=== PATIENT | female | born 1940 | race Caucasian/White ===

== ENCOUNTER 2022-05-24 15:06 | Outpatient (CLI) | payer MEDICARE, OTHER, SELFPAY ==
--- NOTE | 2022-05-24 15:20 | CRLHL7_ITS ---
For Patients: As a result of the Century Cures Act, medical imaging exams and procedure reports are released immediately into your electronic medical record. You may view this report before your referring provider. If you have questions, please contact your health care provider. BILATERAL SCREENING MAMMOGRAM WITH COMPUTER-AIDED DETECTION AND TOMOSYNTHESIS TECHNIQUE: CC and MLO views were obtained. These mammographic images have been obtained using full-field digital technique. These mammographic images were interpreted with the benefit of computer-aided detection. Breast Tomosynthesis was used in this interpretation. COMPARISON FILM: 05/19/21, 05/04/20, 04/18/19. FINDINGS: There are scattered areas of fibroglandular density IMPRESSION: There is no radiographic evidence for malignancy. ASSESSMENT: BI-RADS Category 1: Negative RECOMMENDATION: Routine screening mammogram in 1 year. A lay language report of this examination will be provided to the patient. Chas Reilly M.D. Diagnostic Radiologist [email or web address] NICOLÁS/faith be/Dictated by: Chas Reilly MD @ 05/25/2022 10:08:00 AM (Electronically Signed)
== END 2022-05-24 15:07 | disposition home or self-care (01) ==
LOC: MAMMO 15:13
DX: Z12.31 Encounter for screening mammogram for malignant neoplasm of breast (principal)
CPT/HCPCS: 77063; 77067

== ENCOUNTER 2023-06-26 14:10 | Emergency (ER) | payer MEDICARE, OTHER, SELFPAY ==
[2023-06-26] VITALS (9 sets, daily range): BP systolic 115–144; BP diastolic 57–93; PULSE 105–114; RESP 16–20; TEMP 37.5–37.9; O2SAT 91–97; BMI 21.8
--- NOTE | 2023-06-26 14:32 | CRLHL7_ITS ---
For Patients: As a result of the Century Cures Act, medical imaging exams and procedure reports are released immediately into your electronic medical record. You may view this report before your referring provider. If you have questions, please contact your health care provider. INDICATION: Chest congestion. TECHNIQUE: Chest 2 views. COMPARISON: None. FINDINGS: Cardiovascular and mediastinum: Heart size and vasculature are normal in caliber and appearance. Lungs and pleural spaces: There is a 4 centimeter masslike opacity within the left upper lobe raising the suspicion for pulmonary malignancy. Further evaluation with CT scan of the chest is recommended. The right lung is clear. No pleural effusion or pneumothorax is identified. Bones and soft tissues: No significant findings. IMPRESSION: 4 centimeter left upper lobe masslike opacity suspicious for pulmonary malignancy. Further evaluation with CT scan of the chest is recommended.. Dictated by Randolph Bangura MD @ 06/26/2023 3:35:29 PM (Electronically Signed)
--- NOTE | 2023-06-26 14:33 | ED.GENADULT ---
HPI - General Adult General Chief complaint: Cough Stated complaint: R side head pain, chest congestion Time Seen by Provider: 06/26/23 14:19 History of Present Illness HPI narrative: This 82-year-old female comes in reporting headache that began 3 days ago followed by a nasal congestion and cough. She states that she has felt hot and cold at times. Her son is present with her and states that he measured a temperature over 101?. She arrives here with a temperature of 100.2? F. she reports brief episodes of sharp pain in the right side of her head lasting a 2nd or 2. These are occurring every minute or so. She does not have any neurologic deficits. Related Data Previous Rx's Medication Instructions Recorded doxycycline hyclate 100 mg capsule 100 mg PO BID 10 days #20 caps 06/26/23 hydrocodone 5 mg-acetaminophen 325 1 tab PO Q4-6H PRN pain #15 tabs 06/26/23 mg tablet Allergies Allergy/AdvReac Type Severity Reaction Status Date / Time No Known Drug Allergies Allergy Verified 06/26/23 14:20 Review of Systems Status of ROS: Reports: 10 or more systems reviewed and unremarkable except as noted in History and below Narrative: Constitutional: No fevers, no weight gain or loss. Eyes: No discharge. No vision changes. HENT: No sore throat, no ear pain. Cardiovascular: No chest pain, no palpitations. Respiratory: Cough and nasal congestion. Gastrointestinal: No abdominal pain, no vomiting, no diarrhea. Genitourinary: No dysuria, no hematuria. Musculoskeletal: Normal range of motion. Skin: No rashes, no pruritis. Neurological: No dizziness, weakness, sensory change, speech change. Endo/Heme/Allergies: No bruising or bleeding. No polydipsia. Pysch: no suicidality, no anxiety, no insomnia. All other systems reviewed and are negative. PFSH PFSH Social History Smoking Status: Never smoker Do you use any of these nicotine containing products: None and E-Cigarettes Second hand tobacco smoke exposure: No How often do you have a drink containing alcohol: never AUDIT-C Alcohol total score: 0 Non-prescribed substance use: denies use service: No Exam Narrative: Exam Narrative: Constitutional: Well-developed, well-nourished, no acute distress. HEENT: Normocephalic, atraumatic. Neck: Normal range of motion. Nontender. Supple. Heart: Regular. No murmurs. Tachycardia. Intact distal pulses. Lungs: Clear to auscultation. No chest discomfort. No wheezes, rhonchi, or rales. Abdomen: Normal bowel sounds. Nontender. No rebound tenderness. Genitalia: Deferred. Back: No midline tenderness. Normal range of motion. Extremities: Normal range of motion. No injury. Skin: Intact. No rash. Warm. No erythema or pallor. Neurologic: No altered sensation. No weakness. Alert and oriented. Psychiatric: No suicidality. No anxiety or depression. No insomnia. Nursing notes and vitals signs are reviewed. Const: Vital Signs, click to edit/add: Vital Signs - 24 hr 06/26/23 14:15 06/26/23 14:37 06/26/23 14:38 Temperature 100.2 F H Pulse Rate 114 H 109 H Pulse Rate [Pulse Oximeter] 112 H Respiratory Rate 16 16 Blood Pressure 115/93 H Blood Pressure [Ri ght Upper Arm] 144/73 H Pulse Oximetry 97 91 95 Oxygen Delivery Me thod Room Air 06/26/23 14:45 06/26/23 15:00 06/26/23 15:02 Temperature Pulse Rate 107 H 105 H 106 H Pulse Rate [Pulse Oximeter] Respiratory Rate 20 Blood Pressure 116/64 Blood Pressure [Ri ght Upper Arm] Pulse Oximetry 94 94 94 Oxygen Delivery Me thod 06/26/23 15:19 06/26/23 17:17 Temperature 100.2 F H 99.6 F Pulse Rate Pulse Rate [Pulse Oximeter] Respiratory Rate Blood Pressure Blood Pressure [Ri ght Upper Arm] Pulse Oximetry Oxygen Delivery Me thod Course Vital Signs Vital signs: Initial Vital Signs Temperature 100.2 F H 06/26/23 14:15 Temperature Source Oral 06/26/23 14:15 Pulse Rate 112 H 06/26/23 14:15 Pulse Rhythm Regular 06/26/23 14:15 Pulse Strength 3+ Normal 06/26/23 14:15 Respiratory Rate 16 06/26/23 14:15 Blood Pressure 144/73 H 06/26/23 14:15 Blood Pressure Mean 96 06/26/23 14:15 Blood Pressure Position Sitting 06/26/23 14:15 Pulse Oximetry 97 06/26/23 14:15 Oxygen Delivery Method Room Air 06/26/23 14:15 Vital Signs Temperature 100.2 F H 06/26/23 14:15 Pulse Rate 112 H 06/26/23 14:15 Respiratory Rate 16 06/26/23 14:15 Blood Pressure 144/73 H 06/26/23 14:15 Pulse Oximetry 97 06/26/23 14:15 Oxygen Delivery Method Room Air 06/26/23 14:15 Temperature 99.6 F 06/26/23 17:17 Pulse Rate 106 H 06/26/23 15:02 Respiratory Rate 20 06/26/23 15:02 Blood Pressure 116/64 06/26/23 15:02 Pulse Oximetry 94 06/26/23 15:02 Oxygen Delivery Method Room Air 06/26/23 14:15 Medications Administered Medications: Discontinued Medications Generic Name Dose Route Start Last Admin Trade Name Sammy PRN Reason Stop Dose Admin Acetaminophen 1,000 mg 06/26/23 15:01 06/26/23 15:19 Acetaminophen 500 Mg Tablet PO 06/26/23 15:02 1,000 mg ONCE ONE Administration Hydromorphone HCl 0.2 mg 06/26/23 14:31 06/26/23 14:57 Hydromorphone 0.5 Mg/0.5 Ml Inj IVP 06/26/23 14:32 0.2 mg ONCE ONE Administration Ondansetron HCl 4 mg 06/26/23 14:31 06/26/23 14:57 Ondansetron 2 Mg/Ml Inj IVP 06/26/23 14:32 4 mg ONCE ONE Administration Medical Decision Making MDM Narrative Medical decision making narrative: This patient comes in with upper respiratory symptoms as described above. She does have some tachycardia and did arrive with a borderline fever. Nasal pharyngeal swab returns positive for RSV. Chest x-ray was also obtained and shows a masslike structure in the left upper lobe that would benefit from CT imaging as it is suspicious for a malignancy. The patient also is having short severe pain episodes in her right side of her head. So a CT scan of her head and chest is obtained. The scan of the head returns negative. The chest CT does show this lesion in the left upper lobe. Radiologist recommends follow-up imaging after treatment. The patient is positive for RSV but given this finding on imaging I did elect to treat with doxycycline. I advised her to follow-up with her primary physician in a few weeks or so for repeat imaging. She received prescription also for some tablets of [place]. Lab Data Labs: Lab Results 06/26/23 06/26/23 Range/Units 14:19 14:45 WBC 12.56 H (4.50-11.00) K/uL RBC 4.25 (4.00-5.20) m/uL Hgb 12.6 (12.0-16.0) gm/dL Hct 38.3 (33.0-51.0) % MCV 90 (80-100) fL MCH 30 (26-34) pg MCHC 33 (32-36) gm/dL RDW Coeff of [place] 13.7 (11.5-15.5) % Plt Count 231 (140-440) K/uL Neut % (Auto) 90.5 H (42.0-72.0) % Lymph % (Auto) 2.8 L (20-44) % [place] % (Auto) 6.2 (0.0-11.0) % Eos % (Auto) 0.0 (0.0-7.0) % Baso % (Auto) 0.2 (0.0-3.0) % Neut # (Auto) 11.40 H (1.7-7.0) K/uL Lymph # (Auto) 0.40 L (0.90-2.90) K/uL [place] # (Auto) 0.80 (0.00-0.90) K/UL Eos # (Auto) 0.00 (0.00-0.50) K/uL Baso # (Auto) 0.00 (0.00-0.30) K/uL Abs Immat Gran (auto) 0.00 (0.00-0.30) K/uL Imm/Tot Granulo (auto) 0.3 % Sodium 133 L (135-149) mmol/L Potassium 3.7 (3.6-5.1) mmol/L Chloride 100 (96-114) mmol/L Carbon Dioxide 23 (20-32) mmol/L Anion Gap 10 (7-15) mEq/L BUN 14 (7-30) mg/dL Creatinine 0.7 (0.5-1.5) mg/dL Estimated Creat Clear 41.30 Estimated GFR 87 ml/min Glucose 184 H (60-115) mg/dL Lactate 1.5 (0.5-1.9) mmol/L Calcium 8.8 (8.4-10.6) mg/dL SARS-CoV-2 (PCR) Negative SARS-CoV-2 (Negative) Influenza Type A (PCR) Negative PCR FLU A (Negative) Influenza Type B (PCR) Negative PCR FLU B (Negative) RSV (PCR) POSITIVE PCR RSV A (Negative) Discharge Plan Discharge Clinical Impression: RSV infection, Pneumonia Patient Disposition: Home w/ Parent or Adult Condition: Stable Additional Instructions: take medication as prescribed. Follow up with primary physician after treatment for reimaging of the chest. Return if worsening. Prescriptions: New doxycycline hyclate 100 mg capsule 100 mg PO BID 10 Days Qty: 20 0RF hydrocodone-acetaminophen 5-325 mg tablet 1 tab PO Q4-6H PRN (Reason: pain) Qty: 15 0RF Follow Up/Referrals: Provider,Not a Local [Referring] - Stand Alone Forms: [employer] Info Instructions
[2023-06-26] MEDS: HYDROmorphone 0.5 mg/0.5 ml inj 0.2 MG IVP (14:57)
[2023-06-26] MEDS: ONDANSETRON 2 MG/ML inj 4 MG IVP (14:57)
[2023-06-26 15:05] LABS: Lactate* 1.5 mmol/L (0.5-1.9)
[2023-06-26 15:14] LABS: Basophils Percent Auto 0.2 % (0.0-3.0); Hematocrit 38.3 % (33.0-51.0); Hemoglobin* 12.6 gm/dL (12.0-16.0); Immature Granulocytes Pct Auto 0.3 %; Lymphocytes Percent Auto 2.8 % (20-44); Mean Corpuscular HGB Conc 33 gm/dL (32-36); Mean Corpuscular Hemoglobin 30 pg (26-34); Mean Corpuscular Volume 90 fL (80-100); Monocytes Percent Auto 6.2 % (0.0-11.0); Neutrophils Percent Auto 90.5 % (42.0-72.0); Platelet Count* 231 K/uL (140-440); RDW Coefficient of Variation % 13.7 % (11.5-15.5); Red Blood Count 4.25 m/uL (4.00-5.20); White Blood Count* 12.56 K/uL (4.50-11.00)
[2023-06-26 15:17] LABS: Slide Review Reflex No
[2023-06-26] MEDS: ACETAMINOPHEN 500 MG TABLET 1000 MG PO (15:19)
[2023-06-26 15:29] LABS: Chloride* 100 mmol/L (96-114); Potassium* 3.7 mmol/L (3.6-5.1); Sodium* 133 mmol/L (135-149)
[2023-06-26 15:32] LABS: Anion Gap 10 mEq/L (7-15); Blood Urea Nitrogen* 14 mg/dL (7-30); Carbon Dioxide* 23 mmol/L (20-32); Creatinine* 0.7 mg/dL (0.5-1.5); Estimated Glomerular Filt Rate 87 ml/min; Glucose* 184 mg/dL (60-115)
[2023-06-26 15:33] LABS: Calcium* 8.8 mg/dL (8.4-10.6)
--- NOTE | 2023-06-26 15:33 | PC.NURSE ---
Pt returned from radiology, denies headache pain.
[2023-06-26 16:06] LABS: PCR FLU A Negative PCR FLU A (Negative); PCR FLU B Negative PCR FLU B (Negative); PCR RSV POSITIVE PCR RSV (Negative); SARS PCR* Negative SARS-CoV-2 (Negative)
--- NOTE | 2023-06-26 16:13 | CRLHL7_ITS ---
For Patients: As a result of the Century Cures Act, medical imaging exams and procedure reports are released immediately into your electronic medical record. You may view this report before your referring provider. If you have questions, please contact your health care provider. INDICATION: Stabbing headache. TECHNIQUE: Noncontrast CT of the head with multiplanar reformat in bone and soft tissue algorithms. COMPARISON: None available. FINDINGS: No acute intracranial hemorrhage. Scattered foci of supratentorial white matter hypoattenuation. The barrios-white matter interface is preserved. The ventricles are normal in size. The skull base and calvarium are within normal limits. Orbits are unremarkable. Paranasal sinuses and mastoid air cells are predominantly clear. IMPRESSION: 1. No acute intracranial hemorrhage or CT evidence of cortical infarct. 2. Scattered foci of supratentorial white matter hypoattenuation, nonspecific, but typical of chronic small vessel ischemic changes. Please note that all CT scans at this facility use dose modulation, iterative reconstruction, and/or weight-based dosing when appropriate to reduce radiation dose to as low as reasonably achievable. Dictated by Fermin Rubio MD @ 06/26/2023 4:57:51 PM (Electronically Signed)
--- NOTE | 2023-06-26 16:13 | CRLHL7_ITS ---
For Patients: As a result of the Cures Act, medical imaging exams and procedure reports are released immediately into your electronic medical record. You may view this report before your referring provider. If you have questions, please contact your health care provider. Indication: Follow-up chest x-ray mass from today Technique: Volumetric multidetector CT images of the chest were obtained without the administration of IV contrast. Comparison: Two-view chest June 26, 2023 Findings: The thoracic inlet and thyroid gland are unremarkable. The thoracic aorta is nonaneurysmal. There are enlarged mediastinal and left hilar lymph nodes. There is moderate central bronchial thickening. There is redemonstration of masslike consolidation within the left upper lobe with scattered air bronchograms. There is no pleural effusion or pneumothorax. There is minimal dependent basilar atelectasis. There is no evidence of pulmonary mass or suspicious pulmonary nodule. The partially visualized upper abdominal viscera are within normal limits. The thoracic vertebral body heights are grossly maintained with endplate subchondral cystic changes and Schmorl`s defects. There is no significant spondylolisthesis or displaced fracture. Impression: Demonstration of masslike airspace consolidation within the left upper lobe with air bronchograms corresponding to the area of concern on chest x-ray. Finding could represent a bland consolidation and further evaluation with repeat films after treatment is recommended to document clearance. No other findings suspicious for malignancy. Please note that all CT scans at this facility use dose modulation, iterative reconstruction, and/or weight-based dosing when appropriate to reduce radiation dose to as low as reasonably achievable. Dictated by Sebastián Vasquez MD @ 06/26/2023 5:00:17 PM (Electronically Signed)
== END 2023-06-26 17:40 | disposition home or self-care (01) ==
PROVIDERS: Emergency Provider Emergency Medicine Emergency Medical Services; PCP Family Medicine
DX: J18.9 Pneumonia, unspecified organism (principal); B97.4 Respiratory syncytial virus as the cause of diseases classified elsewhere
CPT/HCPCS: 36415; 70450; 71046; 71250; 80048; 83605; 85025; 87040; 87631; 96374; 96375; 99284; A9270; J1170; J2405

== ENCOUNTER 2023-06-27 21:55 | Inpatient (IN) | payer MEDICARE, OTHER, SELFPAY ==
[2023-06-27 22:27] VITALS: O2SAT 93
[2023-06-27 22:28] VITALS: BP 105/61; PULSE 100; RESP 22; TEMP 37.4; O2SAT 81; BMI 21.8
--- NOTE | 2023-06-27 22:42 | CRLHL7_ITS ---
For Patients: As a result of the Century Cures Act, medical imaging exams and procedure reports are released immediately into your electronic medical record. You may view this report before your referring provider. If you have questions, please contact your health care provider. INDICATION: Hypoxia, cough. TECHNIQUE: Chest 1 view. COMPARISON: Chest radiograph 06/26/2023. CT chest 06/26/2023. FINDINGS: There is a large dense consolidation in the left upper lung with air bronchograms. This has increased in size since prior exam. Hazy airspace opacities in the left lower lung with a new small density in the left lung base. New faint opacity in the lateral right lower lung. Findings likely represent worsening pneumonia. No pneumothorax or significant pleural effusion. Heart size and pulmonary vasculature are within normal limits. The bones are unremarkable. IMPRESSION: Increased size of the large left upper lung consolidation with new bilateral lower lung opacities. Findings likely represent worsening pneumonia. Follow-up is recommended after treatment to ensure resolution. Dictated by Kymberly Carrillo MD @ 06/28/2023 12:27:11 AM (Electronically Signed)
--- NOTE | 2023-06-27 22:44 | ED_ITS ---
HPI - General Adult General Chief complaint: Shortness of Breath/Dyspnea Stated complaint: RSV+ was seen yesterday Time Seen by Provider: 06/27/23 22:36 History of Present Illness HPI narrative: This 82-year-old female was seen yesterday in the emergency department and diagnosed with RSV. Chest x-ray had a finding that indicated need for CT imaging. There was suspicion of a masslike structure that might be malignancy. CT report yesterday stated repeat imaging should be done after treatment. The patient had normal vital signs and went home with a prescription of doxycycline. She returns today with significant shortness of breath. She arrives with oximetry at 81% on room air. She was placed on nasal cannula oxygen and now is at 93-94% oximetry. She states that she had a fever. When I asked her what the temperature was she stated that it was 200. Related Data Previous Rx's Medication Instructions Recorded doxycycline hyclate 100 mg capsule 100 mg PO BID 10 days #20 caps 06/26/23 hydrocodone 5 mg-acetaminophen 325 1 tab PO Q4-6H PRN pain #15 tabs 06/26/23 mg tablet Allergies Allergy/AdvReac Type Severity Reaction Status Date / Time No Known Drug Allergies Allergy Verified 06/26/23 14:20 Review of Systems Status of ROS: Reports: 10 or more systems reviewed and unremarkable except as noted in History and below Narrative: The patient is a poor historian and review of systems is difficult to obtain. [facility] Social History Smoking Status: Never smoker Do you use any of these nicotine containing products: None and E-Cigarettes Second hand tobacco smoke exposure: No How often do you have a drink containing alcohol: never AUDIT-C Alcohol total score: 0 Non-prescribed substance use: denies use service: No Exam Narrative: Exam Narrative: Constitutional: Well-developed, well-nourished, no acute distress. HEENT: Normocephalic, atraumatic. Neck: Normal range of motion. Nontender. Supple. Heart: Regular. No murmurs. Normal rate. Intact distal pulses. Lungs: No use of accessory muscles for breathing. No chest discomfort. Increased lung sounds on the left side. Abdomen: Normal bowel sounds. Nontender. No rebound tenderness. Genitalia: Deferred. Back: No midline tenderness. Normal range of motion. Extremities: Normal range of motion. No injury. Skin: Intact. No rash. Warm. No erythema or pallor. Neurologic: No altered sensation. No weakness. Alert and oriented. Psychiatric: No suicidality. No anxiety or depression. No insomnia. Nursing notes and vitals signs are reviewed. Const: Vital Signs, click to edit/add: Vital Signs - 24 hr 06/27/23 22:27 06/27/23 22:28 06/27/23 23:39 Temperature 99.4 F Pulse Rate [Pulse Oximeter] 100 Respiratory Rate 22 [facility] 105/61 Pulse Oximetry 93 81 L 92 Oxygen Delivery Me thod Nasal Cannula Room Air Room Air Oxygen Flow Rate 2 4 Course Vital Signs Vital signs: Initial Vital Signs Pulse Oximetry 93 06/27/23 22:27 Oxygen Delivery Method Nasal Cannula 06/27/23 22:27 Oxygen Flow Rate 2 06/27/23 22:27 Vital Signs Pulse Oximetry 93 06/27/23 22:27 Oxygen Delivery Method Nasal Cannula 06/27/23 22:27 Oxygen Flow Rate 2 06/27/23 22:27 Temperature 99.4 F 06/27/23 22:28 Pulse Rate 100 06/27/23 22:28 Respiratory Rate 22 06/27/23 22:28 Blood Pressure 105/61 06/27/23 22:28 Pulse Oximetry 92 06/27/23 23:39 Oxygen Delivery Method Room Air 06/27/23 23:39 Oxygen Flow Rate 4 06/27/23 23:39 Medical Decision Making [facility] Narrative Medical decision making narrative: This patient comes in with hypoxia and oximetry at 81% on room air. She is placed on nasal cannula oxygen and now with 4 L she is maintaining oximetry at around 93-94%. I did a repeat x-ray and compared with yesterday there is s ignificant increase of the infiltrate in the left lung typical of pneumonia. Testing yesterday was positive for RSV. An IV was established and after blood cultures are acquired the patient did receive doses of Rocephin and Zithromax intravenously. Lab results returned with an elevated white count to 18,000. Her lactate level is in normal range. I spoke with the [facility] hospitalist, Dr. Greer, who agrees to her admission into the hospital. Lab Data Labs: Lab Results 06/27/23 Range/Units 23:11 WBC 18.62 H (4.50-11.00) K/uL RBC 4.20 (4.00-5.20) m/uL Hgb 12.5 (12.0-16.0) gm/dL Hct 37.7 (33.0-51.0) % MCV 90 (80-100) fL MCH 30 (26-34) pg MCHC 33 (32-36) gm/dL RDW Coeff of [place] 14.3 (11.5-15.5) % Plt Count 248 (140-440) K/uL Neut % (Auto) 95.2 H (42.0-72.0) % Lymph % (Auto) 1.3 L (20-44) % [place] % (Auto) 2.5 (0.0-11.0) % Eos % (Auto) 0.0 (0.0-7.0) % Baso % (Auto) 0.1 (0.0-3.0) % Neut # (Auto) 17.70 H (1.7-7.0) K/uL Lymph # (Auto) 0.20 L (0.90-2.90) K/uL [place] # (Auto) 0.50 (0.00-0.90) K/UL Eos # (Auto) 0.00 (0.00-0.50) K/uL Baso # (Auto) 0.00 (0.00-0.30) K/uL Abs Immat Gran (auto) 0.20 (0.00-0.30) K/uL Imm/Tot Granulo (auto) 0.9 % Sodium 131 L (135-149) mmol/L Potassium 4.4 (3.6-5.1) mmol/L Chloride 98 (96-114) mmol/L Carbon Dioxide 22 (20-32) mmol/L Anion Gap 11 (7-15) mEq/L BUN 32 H (7-30) mg/dL Creatinine 1.3 (0.5-1.5) mg/dL Estimated Creat Clear 31.77 Estimated GFR 41 ml/min Glucose 114 (60-115) mg/dL Lactate 1.3 (0.5-1.9) mmol/L Calcium 8.9 (8.4-10.6) mg/dL Troponin I < 0.01 L (0.01-0.04) ng/mL ECG Data Attestation: I personally reviewed and interpreted this ECG as follows: Interpretation: Normal sinus rhythm. Rate is 93 beats per minute. There are no ST or T-wave abnormalities. Discharge Plan Discharge Clinical Impression: RSV infection, Pneumonia Patient Disposition: Admitted As Inpatient Condition: Unchanged Prescriptions: No Action doxycycline hyclate 100 mg capsule 100 mg PO BID 10 Days Qty: 20 0RF hydrocodone-acetaminophen 5-325 mg tablet 1 tab PO Q4-6H PRN (Reason: pain) Qty: 15 0RF Follow Up/Referrals: Marycruz Mills MD [Primary Care Provider] -
[2023-06-27 23:15] LABS: Lactate* 1.3 mmol/L (0.5-1.9)
[2023-06-27 23:19] LABS: Basophils Percent Auto 0.1 % (0.0-3.0); Hematocrit 37.7 % (33.0-51.0); Hemoglobin* 12.5 gm/dL (12.0-16.0); Immature Granulocytes Pct Auto 0.9 %; Lymphocytes Percent Auto 1.3 % (20-44); Mean Corpuscular HGB Conc 33 gm/dL (32-36); Mean Corpuscular Hemoglobin 30 pg (26-34); Mean Corpuscular Volume 90 fL (80-100); Monocytes Percent Auto 2.5 % (0.0-11.0); Neutrophils Percent Auto 95.2 % (42.0-72.0); Platelet Count* 248 K/uL (140-440); RDW Coefficient of Variation % 14.3 % (11.5-15.5); White Blood Count* 18.62 K/uL (4.50-11.00)
[2023-06-27 23:20] LABS: Slide Review Reflex No
[2023-06-27 23:36] LABS: Chloride* 98 mmol/L (96-114); Potassium* 4.4 mmol/L (3.6-5.1); Sodium* 131 mmol/L (135-149)
[2023-06-27 23:38] LABS: Creatinine* 1.3 mg/dL (0.5-1.5); Est. Creatinine Clearance* 31.77; Estimated Glomerular Filt Rate 41 ml/min
[2023-06-27 23:39] VITALS: O2SAT 92
[2023-06-27 23:39] LABS: Anion Gap 11 mEq/L (7-15); Blood Urea Nitrogen* 32 mg/dL (7-30); Calcium* 8.9 mg/dL (8.4-10.6); Carbon Dioxide* 22 mmol/L (20-32); Glucose* 114 mg/dL (60-115)
[2023-06-27 23:51] LABS: Troponin I* < 0.01 ng/mL (0.01-0.04)
[2023-06-27 23:59] VITALS: PULSE 94; O2SAT 90
[2023-06-28] VITALS (10 sets, daily range): BP systolic 117–134; BP diastolic 54–79; PULSE 94–102; RESP 20–22; TEMP 36.8–37.6; O2SAT 90–98; BMI 22.2
--- NOTE | 2023-06-28 00:29 | W.PM.TELEH&P ---
Telehealth- H&P: HPI History of Present Illness Date Seen: 06/28/23 Chief complaint: RSV+ was seen yesterday Narrative: Yoko Pierson is seen as an Interactive Telehealth visit. Yoko Pierson is a 82 year old female who as baseline is remarkably healthy (no prescription medications chronically) who was seen yesterday in the emergency department for headache, cough, congestion as well as shortness of breath. She was diagnosed with RSV infection with left upper lobe pneumonia, and was sent home with doxycycline. She returned today for worsening symptoms today. She states that her symptoms started last Sunday with a headache. She endorses congestion, dry coughing, fevers, and loss of appetite and nausea. She was unable to keep down any of the prescribed antibiotic. She denies any sick contacts in her family, but does say that there were people sick at her work. Repeat x-ray showed enlarging left upper lobe pneumonia. WBC is worsening, climbing from 12.6-11.6. She also has worsening hyponatremia. She does not require supplemental oxygen when she was seen yesterday, but now is requiring as much as 4 L to maintain oxygen saturation above 90%. Lactate is within normal limits at 1.3. Blood cultures were drawn, patient was placed on empiric Zosyn in the emergency department appropriately. She is now admitted for further management for worsening pneumonia. Review of Systems Status of ROS: Reports: 10 or more systems reviewed and unremarkable except as noted in History and below [facility] Social History Smoking Status: Never smoker Do you use any of these nicotine containing products: None and E-Cigarettes Second hand tobacco smoke exposure: No How often do you have a drink containing alcohol: never AUDIT-C Alcohol total score: 0 Non-prescribed substance use: denies use service: No Meds Home Medications and Allergies Allergies Allergy/AdvReac Type Severity Reaction Status Date / Time No Known Drug Allergies Allergy Verified 06/26/23 14:20 Exam Narrative Exam Narrative: Physical Exam GENERAL: ?vital signs reviewed, well developed and nourished, in no distress HEENT: pupils are equal round and reactive to light, extraocular movements are grossly within normal limits and oral mucosa is moist. NECK: Supple without lymphadenopathy or thyromegaly according to nursing staff examination observation HEART: Regular rate and rhythm without any rubs, murmurs, or gallops. LUNGS: Clear to auscultation bilaterally with good air movement throughout ABDOMEN: Observation from nurse assisted exam, abdomen appears soft, nontender, and nondistended with Positive bowel sounds noted. EXTREMITIES: Trace edema LEs bilaterally SKIN:? Observed warm and dry with color normal Const Vital Signs, click to edit/add: Vital Signs - 24 hr 06/27/23 22:27 06/27/23 22:28 06/27/23 23:39 Temperature 99.4 F Pulse Rate Pulse Rate [Pulse Oximeter] 100 Respiratory Rate 22 Blood Pressure [Right Upper Arm] 105/61 Pulse Oximetry 93 81 L 92 Oxygen Delivery Method Nasal Cannula Room Air Room Air Oxygen Flow Rate 2 4 06/27/23 23:59 06/28/23 00:00 Temperature Pulse Rate 94 94 Pulse Rate [Pulse Oximeter] Respiratory Rate Blood Pressure [Right Upper Arm] Pulse Oximetry 90 90 Oxygen Delivery Method Oxygen Flow Rate Hospitalist - H&P: Result Labs Labs: Short CBC 06/27/23 Range/Units 23:11 WBC 18.62 H (4.50-11.00) K/uL Hgb 12.5 (12.0-16.0) gm/dL Hct 37.7 (33.0-51.0) % Plt Count 248 (140-440) K/uL BMP 06/27/23 23:11 Sodium 131 L Potassium 4.4 Chloride 98 Carbon Dioxide 22 BUN 32 H Creatinine 1.3 Glucose 114 Calcium 8.9 Cardiac Enzymes 06/27/23 Range/Units 23:11 Troponin I < 0.01 L (0.01-0.04) ng/mL Assessment and Plan Assessment and plan (1) Pneumonia: Status: Acute Assessment and Plan: Possible viral pneumonia versus secondary bacterial component. CTA and CXR confirm enlarging KENN consolidation, less likely malignancy due to changes within 24 hours (2) RSV infection: Status: Acute Assessment and Plan: Supportive cares (3) Hyponatremia: Status: Acute Assessment and Plan: Likely hypovolemic as a result of acute illness. Will give IVFs (4) Acute hypoxic respiratory failure: Status: Acute Assessment and Plan: Supplemental O2 as needed, wean as able (5) Sepsis: Status: Acute Assessment and Plan: Lactate wnl IVFs (6) Community acquired pneumonia: Status: Acute Assessment and Plan: Empiric zosyn and azithromycin Follow blood cultures Telehealth: Statement Statement Telehealth Visit: Today's History and Physical is provided via interactive telehealth by Ahsan Greer MD.? Patient is located at [facility].? Provider is located at [facility].? Nursing staff assisted with the patient's exam. The visit being done today meets criteria for a telehealth visit and the patient or patient?s parent/guardian is aware the visit is a telehealth visit.
--- NOTE | 2023-06-28 00:47 | PC.NURSE ---
nurse to nurse report given to zeeshan GARCIA. patient going to [phone].
[2023-06-28] MEDS: SODIUM CHLORIDE 0.9 % (FLUSH) 10 ML SYRINGE 5 ML IVF ×2 (01:51→21:35)
[2023-06-28] MEDS: 0.9 % SODIUM CHLORIDE 1000 ml 1,000 ML 75 ML IV ×2 (01:52→20:15)
[2023-06-28] MEDS: PIPERACILLIN/TAZOBACTAM 3.375 GM in 0.9 % SODIUM CHLORIDE Mini-bag 100 ML IVPB ×4 (01:52→20:14)
[2023-06-28] MEDS: ACETAMINOPHEN 325 MG TABLET PO ×3 (01:55→15:45)
[2023-06-28] MEDS: AZITHROMYCIN 500 MG in 0.9 % SODIUM CHLORIDE 250 ml 250 ML 255 MG IVPB (02:57)
[2023-06-28] MEDS: ENOXAPARIN 30 MG/0.3ML INJ 40 MG SUBCUT (03:02)
[2023-06-28 06:32] LABS: Basophils Percent Auto 0.1 % (0.0-3.0); Hematocrit 34.8 % (33.0-51.0); Hemoglobin* 11.4 gm/dL (12.0-16.0); Lymphocytes Percent Auto 1.9 % (20-44); Mean Corpuscular HGB Conc 33 gm/dL (32-36); Mean Corpuscular Hemoglobin 29 pg (26-34); Mean Corpuscular Volume 90 fL (80-100); Monocytes Percent Auto 2.2 % (0.0-11.0); Neutrophils Percent Auto 94.8 % (42.0-72.0); Platelet Count* 240 K/uL (140-440); RDW Coefficient of Variation % 14.4 % (11.5-15.5); Red Blood Count 3.88 m/uL (4.00-5.20); White Blood Count* 18.65 K/uL (4.50-11.00)
[2023-06-28 06:40] LABS: Chloride* 100 mmol/L (96-114); Potassium* 4.2 mmol/L (3.6-5.1); Sodium* 133 mmol/L (135-149)
[2023-06-28 06:43] LABS: Anion Gap 7 mEq/L (7-15); Blood Urea Nitrogen* 33 mg/dL (7-30); Carbon Dioxide* 26 mmol/L (20-32); Creatinine* 1.3 mg/dL (0.5-1.5); Est. Creatinine Clearance* 31.77; Estimated Glomerular Filt Rate 41 ml/min; Slide Review Reflex Yes
[2023-06-28 06:44] LABS: Calcium* 8.4 mg/dL (8.4-10.6); Glucose* 107 mg/dL (60-115)
[2023-06-28 07:41] LABS: Slide Review Acceptable Review (Acceptable)
--- NOTE | 2023-06-28 07:47 | PC.NURSE ---
Pt alert and oriented x3. Afebrile. Pt reports 3/10 pain in throat from coughing, pain managed with PRN medications. Pt reports occasional headaches described as short shooting sharp pain that lasts for a few seconds to minutes then goes away. Pt is up SBA with IV pole. Pt reports nausea with drinking water prior to arriving to unit but has since been able to take sips without nausea. Pt slept intermittently throughout night.
[2023-06-28] MEDS: METHYLPREDNISOLONE SOD SUCC 62.5 MG/ML (125) 125 MG IVP ×3 (09:29→21:36)
[2023-06-28] MEDS: IPRAT-ALBUT 0.5-2.5 MG/3 ML NEB 1 NEB IH ×2 (09:45→15:46)
--- NOTE | 2023-06-28 13:57 | PC.NURSE ---
Shift Summary: Patient pleasant and cooperative. Up with SBA. Vital stable and WNL. O2 weaned down to 2.5L/NC, maintaining o2 sat 90-94%. headache and sore throat intermittently throughout shift, managed with PRN acetaminophen and dimming the lights in her room. Wheezing heard this morning, PRN neb effective.
--- NOTE | 2023-06-28 15:15 | PM.IMPN1 ---
Progress Note: A&P Assessment and plan (1) Acute hypoxic respiratory failure: Problem details: -positive RSV, left upper lobe pneumonia -pulmonary hygiene. Budesonide nebs. P.r.n. DuoNebs. RT to evaluate with ISP and aerobika. -Zosyn and azithromycin for the bacterial component. Solu-Medrol and oxygen for RSV. -follow imaging and oxygen demand closely. -two sets of blood cultures 1 from the th and 1 from the are all negative to date -urine antigens for strep pneumo only Legionella are pending Status: Acute (2) Pneumonia: Problem details: -left upper lobe. Will need follow-up imaging to assure resolution. Status: Acute (3) RSV infection: Problem details: -supportive care as outlined above Status: Acute (4) CONCHA (acute kidney injury): Problem details: Noted. Following. Creatinine 1.3, previously 0.7. Status: Acute (5) Hyponatremia: Problem details: Mild. One hundred thirty-three. Following. Status: Acute (6) Sepsis: Problem details: Resolved. Status: Acute Subjective Date Seen: 06/28/23 Interval history: Daily Progress Note - Hospital Medicine Day #: 2 CC: Acute hypoxic respiratory failure, positive RSV, left upper lobe pneumonia OVERNIGHT UPDATES FROM STAFF & MED, LAB, IMAGING UPDATES -fever defervesced -remains on 3.5 L per nasal cannula oxygen -Otherwise vitals are stable. Respiratory rate is at 20. -elevated white count, 18.65 -mild hyponatremia. Mild CONCHA 1.3 -positive RSV PCR Chest CT from 06/26. Demonstration of masslike airspace consolidation within the left upper lobe with air bronchograms corresponding to the area of concern on chest x-ray. Finding could represent a bland consolidation and further evaluation with repeat films after treatment is recommended to document clearance. Chest x-ray from admission Increased size of the large left upper lung consolidation with new bilateral lower lung opacities. Findings likely represent worsening pneumonia. Follow-up is recommended after treatment to ensure resolution. Objective: Looks ill. Coherent. Vitals: see above Lungs: Bilateral crackles, rhonchi. No wheezes. Cardiac: S1S2. Disposition/Potential discharge - Likely to return to previous living situation. Today I spent 50minutes seeing the patient, reviewing Expanse and EPIC notes/diagnostics, discussing the care plan with our care time that includes social work, PT/OT, pharmacy, RT, halfway and documenting my impressions and plan in the medical record. Exam Const: Vital Signs, click to edit/add: Vital Signs - 24 hr 06/27/23 22:27 06/27/23 22:28 06/27/23 23:39 Temperature 99.4 F Pulse Rate Pulse Rate [Left P ulse Oximeter] Pulse Rate [Pulse Oximeter] 100 Respiratory Rate 22 Blood Pressure [Ri ght Arm] Blood Pressure [Ri ght Upper Arm] 105/61 Pulse Oximetry 93 81 L 92 Oxygen Delivery Me thod Nasal Cannula Room Air Room Air Oxygen Flow Rate 2 4 06/27/23 23:59 06/28/23 00:00 06/28/23 00:00 Temperature Pulse Rate 94 94 Pulse Rate [Left P ulse Oximeter] Pulse Rate [Pulse Oximeter] Respiratory Rate 22 Blood Pressure [Ri ght Arm] 122/74 Blood Pressure [Ri ght Upper Arm] Pulse Oximetry 90 90 96 Oxygen Delivery Me thod Nasal Cannula Oxygen Flow Rate 4 06/28/23 00:00 06/28/23 00:51 06/28/23 03:00 Temperature 98.7 F Pulse Rate Pulse Rate [Left P ulse Oximeter] Pulse Rate [Pulse Oximeter] Respiratory Rate 22 20 Blood Pressure [Ri ght Arm] 122/54 L Blood Pressure [Ri ght Upper Arm] Pulse Oximetry 95 96 94 Oxygen Delivery Me thod Nasal Cannula Nasal Cannula Oxygen Flow Rate 4 3.5 06/28/23 07:55 06/28/23 07:55 06/28/23 11:00 Temperature 98.7 F 98.8 F Pulse Rate Pulse Rate [Left P ulse Oximeter] 100 Pulse Rate [Pulse Oximeter] Respiratory Rate 20 20 Blood Pressure [Ri ght Arm] 117/58 L 122/62 Blood Pressure [Ri ght Upper Arm] Pulse Oximetry 93 93 90 Oxygen Delivery Me thod Nasal Cannula Nasal Cannula Nasal Cannula Oxygen Flow Rate 3.5 3.5 3.5 Labs Labs: Laboratory Results - last 24 hr 06/27/23 06/28/23 23:11 06:08 WBC 18.62 H 18.65 H RBC 4.20 3.88 L Hgb 12.5 11.4 L Hct 37.7 34.8 MCV 90 90 MCH 30 29 MCHC 33 33 RDW Coeff of Willa 14.3 14.4 Plt Count 248 240 Neut % (Auto) 95.2 H 94.8 H Lymph % (Auto) 1.3 L 1.9 L [place] % (Auto) 2.5 2.2 Eos % (Auto) 0.0 0.0 Baso % (Auto) 0.1 0.1 Neut # (Auto) 17.70 H 17.70 H Lymph # (Auto) 0.20 L 0.40 L [place] # (Auto) 0.50 0.40 Eos # (Auto) 0.00 0.00 Baso # (Auto) 0.00 0.00 Abs Immat Gran (auto) 0.20 0.20 Imm/Tot Granulo (auto) 0.9 1.0 Diff Slide Review Acceptable Review Sodium 131 L 133 L Potassium 4.4 4.2 Chloride 98 100 Carbon Dioxide 22 26 Anion Gap 11 7 BUN 32 H 33 H Creatinine 1.3 1.3 Estimated Creat Clear 31.77 31.77 Estimated GFR 41 41 Glucose 114 107 Lactate 1.3 Calcium 8.9 8.4 Troponin I < 0.01 L
[2023-06-28 15:54] LABS: HCO3 VBG 24 mmol/L (21-28); PCO2 VBG 36 mmHG (40-50); PO2 VBG 37.7 mmHG (25-47); pH VBG 7.419 (7.32-7.43)
[2023-06-28 16:04] LABS: Magnesium* 2.6 mg/dL (1.5-2.6)
[2023-06-28 16:07] LABS: C Reactive Protein* 3.1 mg/dL (0.5-1.0)
[2023-06-28 16:21] LABS: Procalcitonin* 4.59 ng/mL (<0.50)
[2023-06-28 20:19] LABS: Legionella pneumo Ag Urine L. pneumo Negative (Negative); S pneumo Ag Urine S. pneumo Negative (Negative)
[2023-06-28] MEDS: BUDESONIDE 0.5 MG/2ML NEB NEB (21:35)
[2023-06-28] MEDS: BENZOCAINE/MENTHOL 1 EACH LOZENGE MUCOUS MEM (21:36)
[2023-06-29] VITALS (14 sets, daily range): BP systolic 125–144; BP diastolic 74–87; PULSE 81–98; RESP 22–24; TEMP 36.8–37.2; O2SAT 89–94
[2023-06-29] MEDS: AZITHROMYCIN 500 MG in 0.9 % SODIUM CHLORIDE 250 ml 250 ML 255 MG IVPB (01:26)
[2023-06-29] MEDS: ENOXAPARIN 30 MG/0.3ML INJ 40 MG SUBCUT (01:29)
[2023-06-29] MEDS: PIPERACILLIN/TAZOBACTAM 3.375 GM in 0.9 % SODIUM CHLORIDE Mini-bag 100 ML IVPB ×4 (02:34→19:58)
[2023-06-29] MEDS: ACETAMINOPHEN 325 MG TABLET PO (02:34)
[2023-06-29] MEDS: METHYLPREDNISOLONE SOD SUCC 62.5 MG/ML (125) 125 MG IVP ×4 (03:15→20:59)
[2023-06-29] MEDS: SODIUM CHLORIDE 0.9 % (FLUSH) 10 ML SYRINGE 5 ML IVF ×3 (03:15→20:58)
[2023-06-29 06:45] LABS: HCO3 VBG 22 mmol/L (21-28); PCO2 VBG 32 mmHG (40-50); PO2 VBG 69.7 mmHG (25-47); pH VBG 7.457 (7.32-7.43)
[2023-06-29 06:58] LABS: Basophils Percent Auto 0.1 % (0.0-3.0); Hematocrit 34.3 % (33.0-51.0); Hemoglobin* 11.4 gm/dL (12.0-16.0); Immature Granulocytes Pct Auto 0.6 %; Lymphocytes Percent Auto 2.5 % (20-44); Mean Corpuscular HGB Conc 33 gm/dL (32-36); Mean Corpuscular Hemoglobin 29 pg (26-34); Mean Corpuscular Volume 88 fL (80-100); Monocytes Percent Auto 1.9 % (0.0-11.0); Neutrophils Percent Auto 94.9 % (42.0-72.0); Platelet Count* 290 K/uL (140-440); RDW Coefficient of Variation % 14.4 % (11.5-15.5); Red Blood Count 3.89 m/uL (4.00-5.20); White Blood Count* 18.62 K/uL (4.50-11.00)
[2023-06-29 07:30] LABS: Albumin* 3.5 g/dL (3.3-5.0); Chloride* 106 mmol/L (96-114); Sodium* 138 mmol/L (135-149)
[2023-06-29 07:31] LABS: Potassium* 3.7 mmol/L (3.6-5.1)
[2023-06-29 07:32] LABS: Anion Gap 10 mEq/L (7-15); Carbon Dioxide* 22 mmol/L (20-32); Creatinine* 0.9 mg/dL (0.5-1.5); Estimated Glomerular Filt Rate 64 ml/min
[2023-06-29 07:33] LABS: Alkaline Phosphatase* 130 U/L (40-150); Aspartate Amino Transferase* 37 U/L (12-35); Bilirubin Direct* 0.3 mg/dL (0.0-0.5); Bilirubin Total* 0.8 mg/dL (0.1-1.5); Blood Urea Nitrogen* 23 mg/dL (7-30); Total Protein* 6.6 g/dL (6.0-8.3)
[2023-06-29 07:34] LABS: Alanine Aminotransferase* 40 U/L (4-35); Calcium* 8.8 mg/dL (8.4-10.6); Glucose* 132 mg/dL (60-115); Magnesium* 2.7 mg/dL (1.5-2.6); Phosphorus* 3.8 mg/dL (2.5-4.5); Slide Review Reflex No
[2023-06-29 07:43] LABS: Troponin I* 0.02 ng/mL (0.01-0.04)
[2023-06-29 07:48] LABS: Procalcitonin* 3.58 ng/mL (<0.50)
[2023-06-29 07:58] LABS: NT Pro B Type NatriureticPept* 2550 pg/mL
--- NOTE | 2023-06-29 08:07 | CRLHL7_ITS ---
For Patients: As a result of the Century Cures Act, medical imaging exams and procedure reports are released immediately into your electronic medical record. You may view this report before your referring provider. If you have questions, please contact your health care provider. INDICATION: INCREASING OXYGEN DEMAND TECHNIQUE: Chest 1 views. COMPARISON: Chest x-ray June 27, 2023 FINDINGS: Cardiovascular and mediastinum: Heart size and vasculature are normal in caliber and appearance. Lungs and pleural spaces: Worsening large dense consolidation in the left upper lung with air bronchograms. Similar faint opacity in the bilateral lower lobes. No sign of pleural effusion. No pneumothorax. Bones and soft tissues: No significant findings. IMPRESSION: Multifocal pneumonia with interval worsening in the left upper lung field. Recommend continued follow-up to document resolution. Dictated by Torrey Woodward MD @ 06/29/2023 8:42:30 AM (Electronically Signed)
--- NOTE | 2023-06-29 08:12 | PC.NURSE ---
Pt alert and oriented x3. Pt had temp of 99.0 F gave PRN Tylenol reassessment pt was 98.3 F. Pt reports 2/10 pain in throat, managed with PRN medications. At start of shift 1900 pt was on 2.5L of oxygen, when pt fell asleep pt O2 stats dropped to 80%, increased O2 to 4L pt maintained oxygen 88-90% for awhile but dropped again to 82%, pt reported breathing through mouth and oxymask was placed on pt and pt was repositioned in bed. O2 stats maintained 88-90% until around 0130 and dropped back down to 82-84%, pt was put on 6L of O2 via oxymask with bubbler, MD was updated, orders were given to take pt off IV maintenance fluids, and continue to monitor. Pt denies feeling more SOB than earlier in the night/previous day, pt RR were 20-22 throughout night. Pt maintain O2 stats of 90-92% throughout rest of night. Pt slept poorly overnight due to medication administrations and O2 alarms.
[2023-06-29 08:15] LABS: C Reactive Protein* 39.1 mg/dL (0.5-1.0)
[2023-06-29 08:44] LABS: Thyroid Stimulating Hormone* 0.173 uIU/mL (0.270-4.20)
[2023-06-29] MEDS: BUDESONIDE 0.5 MG/2ML NEB NEB ×2 (08:54→20:58)
[2023-06-29] MEDS: IPRAT-ALBUT 0.5-2.5 MG/3 ML NEB 1 NEB IH (08:55)
[2023-06-29] MEDS: 0.9 % SODIUM CHLORIDE 250 ml IV (09:00)
--- NOTE | 2023-06-29 10:33 | PM.IMPN1 ---
Progress Note: A&P Assessment and plan (1) Acute hypoxic respiratory failure: Problem details: -worse overnight. Now on high-flow O2. 30 L, 45%. Appreciate consult with Infectious Disease. -positive RSV, multi lobar, left upper lobe predominant community-acquired pneumonia. Not immunocompromised. -pulmonary hygiene. Budesonide nebs. P.r.n. DuoNebs. RT to evaluate with ISP and aerobika. -Zosyn and azithromycin for the bacterial component, adding vancomycin 06/29/2023. Solu-Medrol and oxygen for RSV. -follow imaging and oxygen demand closely. -two sets of blood cultures 1 from the and 1 from the are all negative to date -urine antigens for strep pneumo only Legionella are negative. -nasal swab for MRSA and sputum cultures ordered 06/29 Status: Acute (2) Pneumonia: Problem details: -left upper lobe. Will need follow-up imaging to assure resolution. Status: Acute (3) RSV infection: Problem details: -supportive care as outlined above Status: Acute (4) CONCHA (acute kidney injury): Problem details: Noted. Improved. Status: Acute (5) Hyponatremia: Problem details: Improved Status: Acute (6) Sepsis: Problem details: Resolved. Status: Acute Subjective Date Seen: 06/29/23 Interval history: Daily Progress Note - Hospital Medicine Day #: 3 CC: Acute hypoxic respiratory failure, positive RSV, left upper lobe pneumonia -oxygen demand increased overnight. Currently now on high-flow nasal cannula O2 -pt feels about the same, weak/coughing. -chest x-ray shows worsening of known left multilobar pneumonia. Chest CT pending -discussed case with Infectious Disease: They recommended MRSA nasal culture, sputum culture, adding vancomycin to her azithromycin/Zosyn regimen. Her strep pneumo and Legionella are negative. Her RSV is known positive. Her COVID and influenza are negative. Her blood cultures remain negative x2 sets. -WBC count remains elevated 18.6, neutrophil predominant. -pH is 7.45 this morning. No CO2 retention. -electrolytes and renal function are normal. Mild bump in LFTs. -CRP has jumped dramatically from 3.1-39.1 -thankfully procalcitonin is down trending 4.5 down to 3.5 CXR THIS AM: Multifocal pneumonia with interval worsening in the left upper lung field. Recommend continued follow-up to document resolution. Chest CT from 06/26. Demonstration of masslike airspace consolidation within the left upper lobe with air bronchograms corresponding to the area of concern on chest x-ray. Finding could represent a bland consolidation and further evaluation with repeat films after treatment is recommended to document clearance. Chest x-ray from admission Increased size of the large left upper lung consolidation with new bilateral lower lung opacities. Findings likely represent worsening pneumonia. Follow-up is recommended after treatment to ensure resolution. Objective: Looks ill. Coherent. Vitals: see above Lungs: Bilateral crackles, rhonchi. No wheezes. Cardiac: S1S2. Disposition/Potential discharge - Likely to return to previous living situation. Today I spent 50minutes seeing the patient, reviewing Expanse and EPIC notes/diagnostics, discussing the care plan with our care time that includes social work, PT/OT, pharmacy, RT, [facility] and documenting my impressions and plan in the medical record. Exam Const: Vital Signs, click to edit/add: Vital Signs - 24 hr 06/28/23 11:00 06/28/23 15:30 06/28/23 15:30 Temperature 98.8 F 99.6 F Pulse Rate [Left P ulse Oximeter] 100 99 Respiratory Rate 20 20 Blood Pressure [Ri ght Arm] 122/62 122/79 Pulse Oximetry 90 98 93 Oxygen Delivery Me thod Nasal Cannula Nasal Cannula Nasal Cannula Oxygen Flow Rate 3.5 2.5 2.5 06/28/23 15:45 06/28/23 20:02 06/28/23 21:47 Temperature 99.6 F 98.4 F 98.3 F Pulse Rate [Left P ulse Oximeter] 100 102 H Respiratory Rate 22 20 Blood Pressure [Ri ght Arm] 129/69 134/79 Pulse Oximetry 94 90 Oxygen Delivery Me thod Nasal Cannula Nasal Cannula Oxygen Flow Rate 2.5 3.5 06/28/23 23:00 06/28/23 23:00 06/29/23 00:51 Temperature Pulse Rate [Left P ulse Oximeter] 102 H Respiratory Rate 20 20 Blood Pressure [Ri ght Arm] Pulse Oximetry 90 89 Oxygen Delivery Me thod Nasal Cannula Oxygen Flow Rate 3.5 06/29/23 01:30 06/29/23 02:34 06/29/23 03:49 Temperature 99.0 F 99.0 F 98.3 F Pulse Rate [Left P ulse Oximeter] 98 Respiratory Rate 22 Blood Pressure [Ri ght Arm] 132/77 Pulse Oximetry 94 Oxygen Delivery Me thod Nasal Cannula Oxygen Flow Rate 6 Labs Labs: Laboratory Results - last 24 hr 06/27/23 06/28/23 06/28/23 23:11 15:46 18:22 WBC RBC Hgb Hct MCV MCH MCHC RDW Coeff of Willa Plt Count Neut % (Auto) Lymph % (Auto) [place] % (Auto) Eos % (Auto) Baso % (Auto) Neut # (Auto) Lymph # (Auto) [place] # (Auto) Eos # (Auto) Baso # (Auto) Abs Immat Gran (auto) Imm/Tot Granulo (auto) VBG pH 7.419 VBG pCO2 36 L VBG pO2 37.7 VBG HCO3 24 Sodium Potassium Chloride Carbon Dioxide Anion Gap BUN Creatinine Estimated Creat Clear Estimated GFR Glucose Calcium Phosphorus Magnesium 2.6 Total Bilirubin Direct Bilirubin AST ALT Alkaline Phosphatase Troponin I C-Reactive Protein 3.1 H NT-Pro-B Natriuret Pep Total Protein Albumin Procalcitonin 4.59 H TSH Urine L. pneumophilia Ag L. pneumo Negative Urine Strep pneumoniae Ag S. pneumo Negative Lab Acknowledgement Test Added 06/29/23 06:37 WBC 18.62 H RBC 3.89 L Hgb 11.4 L Hct 34.3 MCV 88 MCH 29 MCHC 33 RDW Coeff of Willa 14.4 Plt Count 290 Neut % (Auto) 94.9 H Lymph % (Auto) 2.5 L [place] % (Auto) 1.9 Eos % (Auto) 0.0 Baso % (Auto) 0.1 Neut # (Auto) 17.70 H Lymph # (Auto) 0.50 L [place] # (Auto) 0.40 Eos # (Auto) 0.00 Baso # (Auto) 0.00 Abs Immat Gran (auto) 0.10 Imm/Tot Granulo (auto) 0.6 VBG pH 7.457 H VBG pCO2 32 L VBG pO2 69.7 H VBG HCO3 22 Sodium 138 Potassium 3.7 Chloride 106 Carbon Dioxide 22 Anion Gap 10 BUN 23 Creatinine 0.9 Estimated Creat Clear 41.30 Estimated GFR 64 Glucose 132 H Calcium 8.8 Phosphorus 3.8 Magnesium 2.7 H Total Bilirubin 0.8 Direct Bilirubin 0.3 AST 37 H ALT 40 H Alkaline Phosphatase 130 Troponin I 0.02 C-Reactive Protein 39.1 H NT-Pro-B Natriuret Pep 2550 Total Protein 6.6 Albumin 3.5 Procalcitonin 3.58 H TSH 0.173 L Urine L. pneumophilia Ag Urine Strep pneumoniae Ag Lab Acknowledgement
--- NOTE | 2023-06-29 11:00 | CRLHL7_ITS ---
For Patients: As a result of the Century Cures Act, medical imaging exams and procedure reports are released immediately into your electronic medical record. You may view this report before your referring provider. If you have questions, please contact your health care provider. INDICATION: Increasing O2 demand. TECHNIQUE: CT chest without IV contrast. COMPARISON: CT chest dated 06/26/2023. FINDINGS: Lungs and pleura: Significant interval increase in size of a dense left upper lobe consolidation with air bronchograms, and surrounding ground-glass opacities. New airspace opacities in the left lower lobe and lingula, as well as new ground-glass opacities in the right upper lobe and to a lesser extent the right lower lobe. New small bilateral pleural effusions. Heart and vasculature: No cardiomegaly, no pericardial effusion. Thyroid and lower neck: No suspicious thyroid nodule. Mediastinum/jill: No lymphadenopathy. Chest wall: No axillary lymphadenopathy. Upper abdomen: No acute abnormality. Bones: Multilevel degenerative changes of the spine. Bones are osteopenic. IMPRESSION: 1. Significant interval increase in size of a dense left upper lobe airspace consolidation, with surrounding ground-glass opacities. 2. New airspace consolidations and ground-glass opacities in the bilateral lungs, compatible with worsening multifocal pneumonia. 3. New small bilateral pleural effusions. Please note that all CT scans at this facility use dose modulation, iterative reconstruction, and/or weight-based dosing when appropriate to reduce radiation dose to as low as reasonably achievable. Dictated by Elina Noel MD @ 06/29/2023 12:29:18 PM (Electronically Signed)
--- NOTE | 2023-06-29 11:49 | W.PM.INFD_ITS ---
Consultation Information Consultation Information Consultation Statement: This patient recommendation is based on a telemedicine consult request which was completed asynchronously through chart review and information provided by the primary physician. The patient was not seen or examined today. The evaluation is consultative in nature and all patient care and treatment decisions can either be accepted or rejected by the patient's primary hospital-based treating physician using their own independent medical judgment for their patient. [employer] contact information: Please call ID [facility] [phone] HPI - Infectious Disease History of Present Illness History of Present Illness: Yoko Pierson is an 82 year old female patient with no known PMH, functional at baseline not on any prescription medications for any chronic conditions per notes, who was initially seen at [facility] emergency department on 06/26/23 with c/o for cough, congestion, shortness of breath and headaches. She was diagnosed with RSV infection with left upper lobe pneumonia and was discharged doxycycline from ER. She returned the next day on 06/27 with worsening symptoms. ?Apparently, symptoms started last Sunday with a headache, she endorses fevers, congestion, dry coughing, decreased fevers appetite, nausea and inability to keep down the prescribed antibiotic. She denies any sick contacts in her family but does say that there were people sick at her work. Repeat x-ray showed enlarging left upper lobe pneumonia. Her labs were notable for worsening leukocytosis and hyponatremia and new hypoxia O2 sat in the 80s requiring 4 L O2 supplementation to maintain oxygen saturation above 90%. VS in ED on 06/27 Temp 99.4, HR 100, BP 105/61, O2 sat 81%. Lactate is within normal limits at 1.3. Blood cultures were drawn, patient was placed on empiric Zosyn in the emergency department appropriately and was admitted for further management for worsening pneumonia. Pt with temp 100.2 on 06/26, then afebrile Tmax 99.6 since admission, tachycardic in 100s with normal BP. Hypoxemic to 81% on 06/27, her O2 requirement have been uptrending and today she was placed on HFNC. Labs reviewed: Leukocytosis trending up to 18.6K>12.5K on admission, PMN 94%, Hg 11.4, plat 290K, Cr normal today 0.9<1.3, initial LA 1.5 on 06/26 then 1.3 on 06/27. AST 37, ALT 40, CRP 39>3.1, procal 3.58<4.59. 06/28 urine strep pneumo and legionella Ag negative, limited RVP positive for RSV by PCR. Blood cultures from 06/26 and 06/27 NGTD. Initial CXR obtained on 06/26 showed 4 centimeter left upper lobe masslike opacity suspicious for pulmonary malignancy. Chest CT obtained and showed masslike airspace consolidation within the left upper lobe with air bronchograms corresponding to the area of concern on chest x-ray. ?Finding could represent a bland consolidation and further evaluation with repeat films after treatment is recommended to document clearance. Due to increase O2 demand, repeat CXR was done on 06/29 result c/w multifocal pneumonia with interval worsening in the left upper lung field. Pt has been on pip/tazo and azithromycin for bacterial PNA, Solumedrol and Os supplementation. Due to worsening O2 demand and worsening CXR findings, tele ID is consulted on 06/29 for further recommendations Re antibiotic management. [facility] Social History What is your current living situation?: I presently have a place to live Problems where you live: no known problems Problems where you live details: n/a In the past 12 months, utilities in danger of being shut off: no In past 12 months, lack of transportation kept you from medical appts, meetings, work, or getting things needed for daily living: no In the past 12 mos, have been you worried that your food would run out before you had money to buy more?: never true In the past 12 mos, the food you bought just didn't last and you didn't have money to buy more?: never true Smoking Status: Never smoker Do you use any of these nicotine containing products: None Second hand tobacco smoke exposure: No How often do you have a drink containing alcohol: never AUDIT-C Alcohol total score: 0 Non-prescribed substance use: denies use Caffeine: Yes (Coffee) How often does anyone, including family, friends and others, physically hurt you : never How often does anyone, including family, friends and others, insult or talk down to you: never How often does anyone, including family, friends and others, threaten you with harm: never How often does anyone, including family, friends and others, scream or curse at you: never service: No Home Medications and Allergies Home Medications and Allergies Inpatient Medications: Active Medications Generic Name Dose Route Start Last Admin Trade Name Freq PRN Reason Stop Dose Admin Acetaminophen 650 - 975 mg 06/28/23 00:49 06/29/23 02:34 Acetaminophen 325 Mg Tablet PO 975 mg Q6H PRN Administration Albuterol/Ipratropium 1 neb 06/28/23 09:08 06/29/23 08:55 Iprat-Albut 0.5-2.5 Mg/3 Ml Neb IH 1 neb Q2H PRN Administration Benzocaine/Menthol 1 each 06/28/23 20:54 06/28/23 21:36 Benzocaine/Menthol 1 Each Lozenge MUCOUS MEM 1 each Q1H PRN Administration sore/dry throat Budesonide 0.5 mg 06/28/23 21:00 06/29/23 08:54 Budesonide 0.5 Mg/2ml Neb NEB 0.5 mg BID CRISTINA Administration Enoxaparin Sodium 40 mg 06/30/23 01:30 Enoxaparin 40 Mg/0.4 Ml Inj SUBCUT Q24H CRISTINA Guaifenesin 100 - 200 mg 06/28/23 20:54 Guaifenesin 100 Mg/Ml Cup PO Q4H PRN Cough Azithromycin 500 mg/ Sodium 255 mls @ 255 mls/hr 06/28/23 01:00 06/29/23 02:35 Chloride IVPB Infused Q24H CRISTINA Infusion Piperacillin Sod/Tazobactam 100 mls @ 200 mls/hr 06/28/23 02:00 06/29/23 08:48 Sod 3.375 gm/ Sodium Chloride IVPB 200 mls/hr Q6H CRISTINA Administration Vancomycin HCl 1,250 mg/ 262.5 mls @ 175 mls/hr 06/29/23 11:15 Sodium Chloride IVPB 06/29/23 12:44 ONCE ONE Protocol Melatonin 3 - 6 mg 06/28/23 00:49 Melatonin 3 Mg Tablet PO HS PRN Insomnia Methylprednisolone Sodium Succinate 125 mg 06/29/23 09:30 Methylprednisolone Sod Succ 62.5 Mg/Ml (125) IVP 06/30/23 03:31 Q6H CRISTINA Ondansetron HCl 4 mg 06/28/23 00:49 Ondansetron 2 Mg/Ml Inj IVP Q4H PRN Nausea Sodium Chloride 5 ml 06/28/23 00:49 06/29/23 03:15 Sodium Chloride 0.9 % (Flush) 10 Ml Syringe IVF 5 ml .FLUSH PRN Administration Sodium Chloride 5 ml 06/28/23 09:00 06/28/23 21:35 Sodium Chloride 0.9 % (Flush) 10 Ml Syringe IVF 5 ml BID CRISTINA Administration Sodium Chloride 3 ml 06/28/23 09:08 Sodium Chloride 0.9% 3ml Neb NEB Q2H PRN Discontinued Medications Generic Name Dose Route Start Last Admin Trade Name Freq PRN Reason Stop Dose Admin Enoxaparin Sodium 30 mg 06/28/23 01:00 Enoxaparin 30 Mg/0.3ml Inj SUBCUT Q24H CRISTINA Enoxaparin Sodium 40 mg 06/28/23 01:30 06/29/23 01:29 Enoxaparin 30 Mg/0.3ml Inj SUBCUT 40 mg Q24H CRISTINA Administration Piperacillin Sod/Tazobactam 100 mls @ 200 mls/hr 06/27/23 22:41 06/28/23 01:32 Sod 3.375 gm/ Sodium Chloride IVPB 06/27/23 22:42 Not Given ONCE ONE Sodium Chloride 1,000 mls @ 75 mls/hr 06/28/23 00:55 06/29/23 01:30 0.9 % Sodium Chloride 1000 Ml IV 0 mls/hr .[id number] CRISTINA Infusion Piperacillin Sod/Tazobactam 100 mls @ 200 mls/hr 06/28/23 05:00 Sod 3.375 gm/ Sodium Chloride IVPB Q6H CRISTINA Methylprednisolone Sodium Succinate 125 mg 06/28/23 09:15 06/29/23 03:15 Methylprednisolone Sod Succ 62.5 Mg/Ml (125) IVP 06/29/23 03:16 125 mg Q6H CRISTINA Administration Allergies Allergy/AdvReac Type Severity Reaction Status Date / Time No Known Drug Allergies Allergy Verified 06/26/23 14:20 Objective - Infectious Disease Objective Vital Signs: Vital Signs - 24 hr 06/28/23 15:30 06/28/23 15:30 06/28/23 15:45 Temperature 99.6 F 99.6 F Pulse Rate [Left Pulse Oximeter] 99 Respiratory Rate 20 Blood Pressure [Right Arm] 122/79 Pulse Oximetry 98 93 Oxygen Delivery Method Nasal Cannula Nasal Cannula Oxygen Flow Rate 2.5 2.5 Fraction of Inspired Oxygen 06/28/23 20:02 06/28/23 21:47 06/28/23 23:00 Temperature 98.4 F 98.3 F Pulse Rate [Left Pulse Oximeter] 100 102 H 102 H Respiratory Rate 22 20 20 Blood Pressure [Right Arm] 129/69 134/79 Pulse Oximetry 94 90 Oxygen Delivery Method Nasal Cannula Nasal Cannula Oxygen Flow Rate 2.5 3.5 Fraction of Inspired Oxygen 06/28/23 23:00 06/29/23 00:51 06/29/23 01:30 Temperature 99.0 F Pulse Rate [Left Pulse Oximeter] 98 Respiratory Rate 20 22 Blood Pressure [Right Arm] 132/77 Pulse Oximetry 90 89 94 Oxygen Delivery Method Nasal Cannula Nasal Cannula Oxygen Flow Rate 3.5 6 Fraction of Inspired Oxygen 06/29/23 02:34 06/29/23 03:49 06/29/23 08:45 Temperature 99.0 F 98.3 F Pulse Rate [Left Pulse Oximeter] Respiratory Rate 22 Blood Pressure [Right Arm] Pulse Oximetry Oxygen Delivery Method Oxygen Flow Rate Fraction of Inspired Oxygen 06/29/23 08:45 06/29/23 08:45 Temperature 98.5 F Pulse Rate [Left Pulse Oximeter] 90 Respiratory Rate 22 22 Blood Pressure [Right Arm] 144/86 H Pulse Oximetry 93 93 Oxygen Delivery Method High Flow Nasal Cannula Nasal Cannula High Flow Nasal Cannula Oxygen Flow Rate 30 Fraction of Inspired Oxygen 45 Narrative: Patient was not seen or examined. Results - Infectious Disease Results Labs: 06/27/23 23:25 Blood Blood Culture - Preliminary NO GROWTH AFTER 24 HOURS 06/27/23 23:11 Blood Blood Culture - Preliminary NO GROWTH AFTER 24 HOURS Laboratory Tests 06/29/23 06/28/23 06/28/23 Range/Units 06:37 18:22 15:46 WBC 18.62 H (4.50-11.00) K/uL RBC 3.89 L (4.00-5.20) m/uL Hgb 11.4 L (12.0-16.0) gm/dL Hct 34.3 (33.0-51.0) % MCV 88 (80-100) fL MCH 29 (26-34) pg MCHC 33 (32-36) gm/dL RDW Coeff of Willa 14.4 (11.5-15.5) % Plt Count 290 (140-440) K/uL Neut % (Auto) 94.9 H (42.0-72.0) % Lymph % (Auto) 2.5 L (20-44) % [place] % (Auto) 1.9 (0.0-11.0) % Eos % (Auto) 0.0 (0.0-7.0) % Baso % (Auto) 0.1 (0.0-3.0) % Neut # (Auto) 17.70 H (1.7-7.0) K/uL Lymph # (Auto) 0.50 L (0.90-2.90) K/uL [place] # (Auto) 0.40 (0.00-0.90) K/UL Eos # (Auto) 0.00 (0.00-0.50) K/uL Baso # (Auto) 0.00 (0.00-0.30) K/uL Abs Immat Gran (auto) 0.10 (0.00-0.30) K/uL Imm/Tot Granulo (auto) 0.6 % Diff Slide Review (Acceptable) VBG pH 7.457 H (7.32-7.43) VBG pCO2 32 L (40-50) mmHG VBG pO2 69.7 H (25-47) mmHG VBG HCO3 22 (21-28) mmol/L Sodium 138 (135-149) mmol/L Potassium 3.7 (3.6-5.1) mmol/L Chloride 106 (96-114) mmol/L Carbon Dioxide 22 (20-32) mmol/L Anion Gap 10 (7-15) mEq/L BUN 23 (7-30) mg/dL Creatinine 0.9 (0.5-1.5) mg/dL Estimated Creat Clear 41.30 Estimated GFR 64 ml/min Glucose 132 H (60-115) mg/dL Lactate (0.5-1.9) mmol/L Calcium 8.8 (8.4-10.6) mg/dL Phosphorus 3.8 (2.5-4.5) mg/dL Magnesium 2.7 H (1.5-2.6) mg/dL Total Bilirubin 0.8 (0.1-1.5) mg/dL Direct Bilirubin 0.3 (0.0-0.5) mg/dL AST 37 H (12-35) U/L ALT 40 H (4-35) U/L Alkaline Phosphatase 130 (40-150) U/L Troponin I 0.02 (0.01-0.04) ng/mL C-Reactive Protein 39.1 H (0.5-1.0) mg/dL NT-Pro-B Natriuret Pep 2550 pg/mL Total Protein 6.6 (6.0-8.3) g/dL Albumin 3.5 (3.3-5.0) g/dL Procalcitonin 3.58 H (<0.50) ng/mL TSH 0.173 L (0.270-4.20) uIU/mL Urine L. pneumophilia Ag L. pneumo Negative (Negative) Urine Strep pneumoniae Ag S. pneumo Negative (Negative) Lab Acknowledgement Test Added 06/28/23 06/27/23 Range/Units 06:08 23:11 WBC 18.65 H 18.62 H (4.50-11.00) K/uL RBC 3.88 L 4.20 (4.00-5.20) m/uL Hgb 11.4 L 12.5 (12.0-16.0) gm/dL Hct 34.8 37.7 (33.0-51.0) % MCV 90 90 (80-100) fL MCH 29 30 (26-34) pg MCHC 33 33 (32-36) gm/dL RDW Coeff of Willa 14.4 14.3 (11.5-15.5) % Plt Count 240 248 (140-440) K/uL Neut % (Auto) 94.8 H 95.2 H (42.0-72.0) % Lymph % (Auto) 1.9 L 1.3 L (20-44) % [place] % (Auto) 2.2 2.5 (0.0-11.0) % Eos % (Auto) 0.0 0.0 (0.0-7.0) % Baso % (Auto) 0.1 0.1 (0.0-3.0) % Neut # (Auto) 17.70 H 17.70 H (1.7-7.0) K/uL Lymph # (Auto) 0.40 L 0.20 L (0.90-2.90) K/uL [place] # (Auto) 0.40 0.50 (0.00-0.90) K/UL Eos # (Auto) 0.00 0.00 (0.00-0.50) K/uL Baso # (Auto) 0.00 0.00 (0.00-0.30) K/uL Abs Immat Gran (auto) 0.20 0.20 (0.00-0.30) K/uL Imm/Tot Granulo (auto) 1.0 0.9 % Diff Slide Review Acceptable Review (Acceptable) VBG pH 7.419 (7.32-7.43) VBG pCO2 36 L (40-50) mmHG VBG pO2 37.7 (25-47) mmHG VBG HCO3 24 (21-28) mmol/L Sodium 133 L 131 L (135-149) mmol/L Potassium 4.2 4.4 (3.6-5.1) mmol/L Chloride 100 98 (96-114) mmol/L Carbon Dioxide 26 22 (20-32) mmol/L Anion Gap 7 11 (7-15) mEq/L BUN 33 H 32 H (7-30) mg/dL Creatinine 1.3 1.3 (0.5-1.5) mg/dL Estimated Creat Clear 31.77 31.77 Estimated GFR 41 41 ml/min Glucose 107 114 (60-115) mg/dL Lactate 1.3 (0.5-1.9) mmol/L Calcium 8.4 8.9 (8.4-10.6) mg/dL Phosphorus (2.5-4.5) mg/dL Magnesium 2.6 (1.5-2.6) mg/dL Total Bilirubin (0.1-1.5) mg/dL Direct Bilirubin (0.0-0.5) mg/dL AST (12-35) U/L ALT (4-35) U/L Alkaline Phosphatase (40-150) U/L Troponin I < 0.01 L (0.01-0.04) ng/mL C-Reactive Protein 3.1 H (0.5-1.0) mg/dL NT-Pro-B Natriuret Pep pg/mL Total Protein (6.0-8.3) g/dL Albumin (3.3-5.0) g/dL Procalcitonin 4.59 H (<0.50) ng/mL TSH (0.270-4.20) uIU/mL Urine L. pneumophilia Ag (Negative) Urine Strep pneumoniae Ag (Negative) Lab Acknowledgement Impression & Recommendations Recommendations Impression & Recommendations: Yoko Pierson is an 82 year old female patient with no known PMH, functional at baseline not on any prescription medications for any chronic conditions per notes, who was initially seen at [facility] emergency department on 06/26/23 with c/o for cough, congestion, shortness of breath and headaches. She was diagnosed with RSV infection with left upper lobe pneumonia and was discharged doxycycline from ER. She returned the next day on 06/27 with worsening symptoms. ?Apparently, symptoms started last Sunday with a headache, she endorses fevers, congestion, dry coughing, decreased fevers appetite, nausea and inability to keep down the prescribed antibiotic. She denies any sick contacts in her family but does say that there were people sick at her work. Repeat x-ray showed enlarging left upper lobe pneumonia. Her labs were notable for worsening leukocytosis and hyponatremia and new hypoxia O2 sat in the 80s requiring 4 L O2 supplementation to maintain oxygen saturation above 90%. VS in ED on 06/27 Temp 99.4, HR 100, BP 105/61, O2 sat 81%. Lactate is within normal limits at 1.3. Blood cultures were drawn, patient was placed on empiric Zosyn in the emergency department appropriately and was admitted for further management for worsening pneumonia. Pt with temp 100.2 on 06/26, then afebrile Tmax 99.6 since admission, tachycardic in 100s with normal BP. Hypoxemic to 81% on 06/27, her O2 requirement have been uptrending and today she was placed on HFNC. Labs reviewed: Leukocytosis trending up to 18.6K>12.5K on admission, PMN 94%, Hg 11.4, plat 290K, Cr normal today 0.9<1.3, initial LA 1.5 on 06/26 then 1.3 on 06/27. AST 37, ALT 40, CRP 39>3.1, procal 3.58<4.59. 06/28 urine strep pneumo and legionella Ag negative, limited RVP positive for RSV by PCR. Blood cultures from 06/26 and 06/27 NGTD. Initial CXR obtained on 06/26 showed 4 centimeter left upper lobe masslike opacity suspicious for pulmonary malignancy. Chest CT obtained and showed masslike airspace consolidation within the left upper lobe with air bronchograms corresponding to the area of concern on chest x-ray. ?Finding could represent a bland consolidation and further evaluation with repeat films after treatment is recommended to document clearance. Due to increase O2 demand, repeat CXR was done on 06/29 result c/w multifocal pneumonia with interval worsening in the left upper lung field. Pt has been on pip/tazo and azithromycin for bacterial PNA, Solumedrol and Os supplementation. Due to worsening O2 demand and worsening CXR findings, tele ID is consulted on 06/29 for further recommendations Re antibiotic management. To continue pip/tazo and IV azithromycin, if clinical status worsens, may need to broaden pip/tazo to meropenem while waiting for sputum Cx and blood cx results. To continue supportive care for RSV infection. Micro 06/26 blood cx NGTD 06/27 blood cx NG after 24 hr Imaging CXR 06/26/23: 4 centimeter left upper lobe masslike opacity suspicious for pulmonary malignancy. Chest CT 06/26/23 masslike airspace consolidation within the left upper lobe with air bronchograms corresponding to the area of concern on chest x-ray. ?Finding could represent a bland consolidation and further evaluation with repeat films after treatment is recommended to document clearance. Repeat CX c/w multifocal pneumonia with interval worsening in the left upper lung field. Antibiotics Zosyn 06/27-current Azithromycin 06/27-current IV vancomycin 06/29-current CTX received in ED on 06/27 Doxycycline discharged on it on 06/26 Allergies to antibiotics NKDA Summary # Left upper lobe pneumonia possible community acquired PNA with RSV vs superimposed bacterial infection vs post-obstructive PNA. 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 I would check sputum culture, check MRSA screen and add IV vancomycin. Recs -To check sputum Cx -Check MRSA screen -Follow up repeat blood cx and send additional once if she spikes new fevers or WBC continues to worsen -Continue Zosyn for now and azithromycin 500 mg IV daily, if clinical status worsens and pt?s decompensates or continues to have worsening respiratory decline, I would switch Zosyn to meropenem 1 gr iv q8hr. -To add IV vancomycin and to dose per local pharmacy protocol with monitoring of vanc troughs and renal function -Continue supportive treatment for RSV. Routine use of Ribavirin is not routinely recommended outside of HSCT and lung transplant patients. -Monitor clinical status, fever curve and labs while pt is on IV antibiotics with CBC/diff, CMP and vanc troughs. -Plan d/w Dr. Gamino -Thanks for the consult, you can contact tele ID with any questions. Tele ID will not round over the weekend or review charts, but you can page IDC to discuss with the covering ID Attending if any questions arise over the weekend. Dr. Marroquin will resume coverage on Sunday07/03/22. Manny Nunez MD [employer] [facility] ID connect
[2023-06-29 12:41] LABS: Free T4 Free Thyroxine* 1.48 ng/dL (0.70-1.85)
[2023-06-29] MEDS: BENZOCAINE/MENTHOL 1 EACH LOZENGE MUCOUS MEM ×2 (15:11→18:19)
[2023-06-29] MEDS: guaiFENesin 100 MG/ML CUP PO ×2 (18:13→22:12)
[2023-06-30] VITALS (18 sets, daily range): BP systolic 120–138; BP diastolic 66–82; PULSE 74–81; RESP 20–27; TEMP 36.8–37.1; O2SAT 90–96
[2023-06-30] MEDS: AZITHROMYCIN 500 MG in 0.9 % SODIUM CHLORIDE 250 ml 250 ML 255 MG IVPB (00:45)
[2023-06-30] MEDS: PIPERACILLIN/TAZOBACTAM 3.375 GM in 0.9 % SODIUM CHLORIDE Mini-bag 100 ML IVPB ×4 (01:58→19:49)
[2023-06-30] MEDS: ENOXAPARIN 40 MG/0.4 ML INJ SUBCUT (02:55)
[2023-06-30] MEDS: METHYLPREDNISOLONE SOD SUCC 62.5 MG/ML (125) 125 MG IVP (02:55)
[2023-06-30] MEDS: BENZOCAINE/MENTHOL 1 EACH LOZENGE MUCOUS MEM (06:19)
--- NOTE | 2023-06-30 06:44 | PC.NURSE ---
End of shift [id number]: A&O pleasant and cooperative. VSS and sats have remained >90% on high flow. Pt reports SOB with activity. Denies pain. SBA to bathroom. Pt appeared to rest comfortably throughout shift. ? ?
[2023-06-30 06:46] LABS: HCO3 VBG 23 mmol/L (21-28); PCO2 VBG 34 mmHG (40-50); PO2 VBG 56.6 mmHG (25-47); pH VBG 7.444 (7.32-7.43)
[2023-06-30 06:51] LABS: Basophils Percent Auto 0.1 % (0.0-3.0); Hematocrit 34.1 % (33.0-51.0); Hemoglobin* 11.4 gm/dL (12.0-16.0); Immature Granulocytes Pct Auto 1.4 %; Lymphocytes Percent Auto 4.1 % (20-44); Mean Corpuscular HGB Conc 33 gm/dL (32-36); Mean Corpuscular Hemoglobin 30 pg (26-34); Mean Corpuscular Volume 89 fL (80-100); Monocytes Percent Auto 3.4 % (0.0-11.0); Platelet Count* 316 K/uL (140-440); RDW Coefficient of Variation % 14.8 % (11.5-15.5); Red Blood Count 3.85 m/uL (4.00-5.20); White Blood Count* 17.13 K/uL (4.50-11.00)
[2023-06-30 06:55] LABS: Slide Review Reflex No
[2023-06-30 07:12] LABS: Chloride* 109 mmol/L (96-114)
[2023-06-30 07:13] LABS: Albumin* 3.3 g/dL (3.3-5.0); Sodium* 140 mmol/L (135-149)
[2023-06-30 07:14] LABS: Potassium* 3.7 mmol/L (3.6-5.1)
[2023-06-30 07:15] LABS: Creatinine* 0.8 mg/dL (0.5-1.5); Estimated Glomerular Filt Rate 74 ml/min
[2023-06-30 07:16] LABS: Alanine Aminotransferase* 41 U/L (4-35); Alkaline Phosphatase* 125 U/L (40-150); Anion Gap 9 mEq/L (7-15); Aspartate Amino Transferase* 39 U/L (12-35); Bilirubin Total* 0.7 mg/dL (0.1-1.5); Blood Urea Nitrogen* 25 mg/dL (7-30); Carbon Dioxide* 22 mmol/L (20-32); Gamma Glutamyl Transpeptidase* 41 U/L (8-55); Glucose* 128 mg/dL (60-115); Total Protein* 6.5 g/dL (6.0-8.3)
[2023-06-30 07:17] LABS: Calcium* 8.8 mg/dL (8.4-10.6); Magnesium* 2.7 mg/dL (1.5-2.6)
[2023-06-30 07:30] LABS: Procalcitonin* 1.71 ng/mL (<0.50)
[2023-06-30 07:39] LABS: C Reactive Protein* 24.4 mg/dL (0.5-1.0)
[2023-06-30] MEDS: predniSONE 20 MG TABLET 60 MG PO (08:43)
[2023-06-30] MEDS: BUDESONIDE 0.5 MG/2ML NEB NEB ×2 (08:43→20:33)
[2023-06-30] MEDS: SODIUM CHLORIDE 0.9 % (FLUSH) 10 ML SYRINGE 5 ML IVF ×2 (08:44→20:33)
[2023-06-30] MEDS: 0.9 % SODIUM CHLORIDE 250 ml IV (11:49)
--- NOTE | 2023-06-30 17:12 | PM.IMPN1 ---
Progress Note: A&P Assessment and plan (1) Acute hypoxic respiratory failure: Problem details: -w stable overnight. Now on high-flow O2. 30 L, 40%. Appreciate consult with Infectious Disease. -positive RSV, multi lobar, left upper lobe predominant community-acquired pneumonia. Not immunocompromised. -pulmonary hygiene. Budesonide nebs. P.r.n. DuoNebs. RT to evaluate with ISP and aerobika. -Zosyn and azithromycin for the bacterial component, adding vancomycin 06/29/2023. Patient Solu-Medrol x2 days. Now on oral prednisone. -follow imaging and oxygen demand closely. -two sets of blood cultures 1 from the th and 1 from the are all negative to date -urine antigens for strep pneumo only Legionella are negative. -nasal swab for MRSA is negative and sputum cultures are ordered not yet collected. Status: Acute (2) Pneumonia: Problem details: -left upper lobe. Will need follow-up imaging to assure resolution. -patient understands that I cannot differentiate between a post obstructive mass causing pneumonia and a lobar bacterial pneumonia. Only time and clearance plus or minus bronchoscopy can tell us this Status: Acute (3) RSV infection: Problem details: -supportive care as outlined above Status: Acute (4) CONCHA (acute kidney injury): Problem details: Noted. Improved. Status: Acute (5) Hyponatremia: Problem details: Improved Status: Acute (6) Sepsis: Problem details: Resolved. Status: Acute Subjective Date Seen: 06/30/23 Interval history: Daily Progress Note - Hospital #: 4 CC: Acute hypoxic respiratory failure, positive RSV, left upper lobe pneumonia OVERNIGHT: -oxygen demand is stable, STILL REQUIRING HIGH-FLOW AT 30 L, 40% -pt feels about the same, weak/coughing. -chest x-ray shows worsening of known left multilobar pneumonia. Chest CT the same on 06/29/2023 -discussed case with Infectious Disease: They recommended MRSA nasal culture, sputum culture, adding vancomycin to her azithromycin/Zosyn regimen. Her strep pneumo and Legionella are negative. Her RSV is known positive. Her COVID and influenza are negative. Her blood cultures remain negative x2 sets. -WBC count remains elevated but slightly down trending -pH is unchanged 7.4. No CO2 retention. -electrolytes and renal function are normal. Mild bump in LFTs. -CRP is now down trending -thankfully procalcitonin is down trending 4.5 down to 3.5 and today down to 1.7 CXR THIS AM: Multifocal pneumonia with interval worsening in the left upper lung field. Recommend continued follow-up to document resolution. Chest CT from 06/26. Demonstration of masslike airspace consolidation within the left upper lobe with air bronchograms corresponding to the area of concern on chest x-ray. Finding could represent a bland consolidation and further evaluation with repeat films after treatment is recommended to document clearance. Chest x-ray from admission Increased size of the large left upper lung consolidation with new bilateral lower lung opacities. Findings likely represent worsening pneumonia. Follow-up is recommended after treatment to ensure resolution. Objective: Looks a little better. Coherent. A little tearful this morning. Vitals: see above Lungs: Right side has cleared nicely. Rhonchi and crackles throughout left hemithorax Cardiac: S1S2. Disposition/Potential discharge - Likely to return to previous living situation. Today I spent 50minutes seeing the patient, reviewing Expanse and EPIC notes/diagnostics, discussing the care plan with our care time that includes social work, PT/OT, pharmacy, RT, penitentiary and documenting my impressions and plan in the medical record. Exam Const: Vital Signs, click to edit/add: Vital Signs - 24 hr 06/29/23 18:00 06/29/23 19:55 06/29/23 20:00 Temperature 98.9 F Pulse Rate [Left P ulse Oximeter] 87 Respiratory Rate 22 Blood Pressure [Le ft Arm] Blood Pressure [Ri ght Arm] 142/85 H Pulse Oximetry 91 Oxygen Delivery Me thod High Flow Nasal Ca nnula Oxygen Flow Rate 30 Fraction of Inspir ed Oxygen 45 45 45 06/29/23 22:20 06/29/23 22:42 06/29/23 23:00 Temperature 98.9 F Pulse Rate [Left P ulse Oximeter] 81 Respiratory Rate 22 22 Blood Pressure [Le ft Arm] Blood Pressure [Ri ght Arm] 125/87 Pulse Oximetry 94 94 Oxygen Delivery Me thod High Flow Nasal Ca nnula High Flow Nasal Ca nnula Oxygen Flow Rate 30 30 Fraction of Inspir ed Oxygen 45 45 45 06/30/23 00:00 06/30/23 00:00 06/30/23 02:00 Temperature Pulse Rate [Left P ulse Oximeter] Respiratory Rate Blood Pressure [Le ft Arm] Blood Pressure [Ri ght Arm] Pulse Oximetry 91 Oxygen Delivery Me thod Oxygen Flow Rate Fraction of Inspir ed Oxygen 45 45 06/30/23 02:51 06/30/23 04:00 06/30/23 06:00 Temperature 98.7 F Pulse Rate [Left P ulse Oximeter] 81 Respiratory Rate 24 Blood Pressure [Le ft Arm] Blood Pressure [Ri ght Arm] 134/82 Pulse Oximetry 92 Oxygen Delivery Me thod High Flow Nasal Ca nnula Oxygen Flow Rate 30 Fraction of Inspir ed Oxygen 45 45 45 06/30/23 07:00 06/30/23 07:00 06/30/23 08:00 Temperature 98.4 F Pulse Rate [Left P ulse Oximeter] 80 Respiratory Rate 20 20 Blood Pressure [Le ft Arm] 120/66 Blood Pressure [Ri ght Arm] Pulse Oximetry 90 91 Oxygen Delivery Me thod High Flow Nasal Ca nnula High Flow Nasal Ca nnula Oxygen Flow Rate 30 30 Fraction of Inspir ed Oxygen 40 40 40 06/30/23 10:59 06/30/23 11:00 06/30/23 12:00 Temperature 98.2 F Pulse Rate [Left P ulse Oximeter] 74 Respiratory Rate 27 H Blood Pressure [Le ft Arm] Blood Pressure [Ri ght Arm] 128/74 Pulse Oximetry 91 Oxygen Delivery Me thod High Flow Nasal Ca nnula Oxygen Flow Rate 30 30 Fraction of Inspir ed Oxygen 40 40 40 06/30/23 14:00 06/30/23 15:00 06/30/23 15:15 Temperature Pulse Rate [Left P ulse Oximeter] 80 Respiratory Rate 20 20 Blood Pressure [Le ft Arm] Blood Pressure [Ri ght Arm] 138/78 Pulse Oximetry 91 90 Oxygen Delivery Me thod High Flow Nasal Ca nnula High Flow Nasal Ca nnula Oxygen Flow Rate 30 30 Fraction of Inspir ed Oxygen 40 40 06/30/23 16:00 Temperature Pulse Rate [Left P ulse Oximeter] Respiratory Rate Blood Pressure [Le ft Arm] Blood Pressure [Ri ght Arm] Pulse Oximetry Oxygen Delivery Me thod Oxygen Flow Rate Fraction of Inspir ed Oxygen 40 Labs Labs: Laboratory Results - last 24 hr 06/30/23 06:27 WBC 17.13 H RBC 3.85 L Hgb 11.4 L Hct 34.1 MCV 89 MCH 30 MCHC 33 RDW Coeff of Willa 14.8 Plt Count 316 Neut % (Auto) 91.0 H Lymph % (Auto) 4.1 L Harrison % (Auto) 3.4 Eos % (Auto) 0.0 Baso % (Auto) 0.1 Neut # (Auto) 15.60 H Lymph # (Auto) 0.70 L Harrison # (Auto) 0.60 Eos # (Auto) 0.00 Baso # (Auto) 0.00 Abs Immat Gran (auto) 0.20 Imm/Tot Granulo (auto) 1.4 VBG pH 7.444 H VBG pCO2 34 L VBG pO2 56.6 H VBG HCO3 23 Sodium 140 Potassium 3.7 Chloride 109 Carbon Dioxide 22 Anion Gap 9 BUN 25 Creatinine 0.8 Estimated Creat Clear 41.30 Estimated GFR 74 Glucose 128 H Calcium 8.8 Magnesium 2.7 H Total Bilirubin 0.7 GGT 41 AST 39 H ALT 41 H Alkaline Phosphatase 125 C-Reactive Protein 24.4 H Total Protein 6.5 Albumin 3.3 Procalcitonin 1.71 H
[2023-06-30] MEDS: guaiFENesin 100 MG/ML CUP PO (17:22)
--- NOTE | 2023-06-30 19:11 | PC.NURSE ---
Nursing Care Hours: [id number] Pt this shift calm and cooperative, fatigued and oriented. SB assist in room. High flow running, keeping sats at >90%. Occasional coughing spells, relieved by chamomile and mint tea. Guaifenesin given later in shift. Pt up to chair for meals, eating and drinking sufficiently. Loose incontinent BM this shift. No c/o pain. Encouraged to use PEP and IS, needing reminders.
[2023-07-01] VITALS (19 sets, daily range): BP systolic 127–145; BP diastolic 68–86; PULSE 68–83; RESP 20–28; TEMP 36.8–37.1; O2SAT 88–95
[2023-07-01] MEDS: guaiFENesin 100 MG/ML CUP PO ×2 (00:39→10:06)
[2023-07-01] MEDS: BENZOCAINE/MENTHOL 1 EACH LOZENGE MUCOUS MEM (00:41)
[2023-07-01] MEDS: AZITHROMYCIN 500 MG in 0.9 % SODIUM CHLORIDE 250 ml 250 ML 255 MG IVPB (00:43)
[2023-07-01] MEDS: ENOXAPARIN 40 MG/0.4 ML INJ SUBCUT (00:43)
[2023-07-01] MEDS: PIPERACILLIN/TAZOBACTAM 3.375 GM in 0.9 % SODIUM CHLORIDE Mini-bag 100 ML IVPB ×4 (01:55→19:44)
[2023-07-01 05:56] LABS: Hematocrit 32.3 % (33.0-51.0); Hemoglobin* 10.6 gm/dL (12.0-16.0); Mean Corpuscular HGB Conc 33 gm/dL (32-36); Mean Corpuscular Hemoglobin 29 pg (26-34); Mean Corpuscular Volume 89 fL (80-100); Platelet Count* 282 K/uL (140-440); Red Blood Count 3.64 m/uL (4.00-5.20); White Blood Count* 14.23 K/uL (4.50-11.00)
[2023-07-01 06:07] LABS: Slide Review Reflex No
[2023-07-01 06:10] LABS: HCO3 VBG 24 mmol/L (21-28); PCO2 VBG 32 mmHG (40-50); pH VBG 7.481 (7.32-7.43)
[2023-07-01 06:12] LABS: Chloride* 111 mmol/L (96-114)
[2023-07-01 06:13] LABS: Potassium* 3.4 mmol/L (3.6-5.1); Sodium* 141 mmol/L (135-149)
[2023-07-01 06:15] LABS: Anion Gap 8 mEq/L (7-15); Aspartate Amino Transferase* 44 U/L (12-35); Bilirubin Total* 0.6 mg/dL (0.1-1.5); Carbon Dioxide* 22 mmol/L (20-32); Creatinine* 0.8 mg/dL (0.5-1.5); Estimated Glomerular Filt Rate 74 ml/min; Total Protein* 5.9 g/dL (6.0-8.3)
[2023-07-01 06:16] LABS: Alanine Aminotransferase* 47 U/L (4-35); Alkaline Phosphatase* 110 U/L (40-150); Blood Urea Nitrogen* 30 mg/dL (7-30); Calcium* 8.5 mg/dL (8.4-10.6); Glucose* 113 mg/dL (60-115)
--- NOTE | 2023-07-01 06:19 | PC.NURSE ---
End of shift [id number]: A&O pleasant and cooperative. VSS and sats have remained >90% on high flow. Pt reports SOB with activity. Pt had one continent loose stool and one incontinent loose stool. updated. Waiting to obtain stool sample. Denies pain. SBA to bathroom. Pt appeared to rest comfortably throughout shift.?
[2023-07-01 06:35] LABS: C Reactive Protein* 13.8 mg/dL (0.5-1.0)
[2023-07-01] MEDS: predniSONE 20 MG TABLET 60 MG PO (10:06)
[2023-07-01] MEDS: BUDESONIDE 0.5 MG/2ML NEB NEB ×2 (10:07→20:49)
[2023-07-01] MEDS: IPRAT-ALBUT 0.5-2.5 MG/3 ML NEB 1 NEB IH (10:07)
[2023-07-01] MEDS: SODIUM CHLORIDE 0.9 % (FLUSH) 10 ML SYRINGE 5 ML IVF ×2 (10:07→20:49)
[2023-07-01] MEDS: 0.9 % SODIUM CHLORIDE 250 ml IV (10:08)
--- NOTE | 2023-07-01 16:49 | P.IMPN_ITS ---
Progress Note: A&P Assessment and plan (1) Acute hypoxic respiratory failure: Problem details: -stable overnight. Continues on high-flow O2. 30 L, 40%. Appreciate consult with Infectious Disease. -positive RSV, multi lobar, left upper lobe predominant community-acquired pneumonia. Not immunocompromised. -pulmonary hygiene. Budesonide nebs. P.r.n. DuoNebs. RT to evaluate with ISP and aerobika. -Zosyn and azithromycin for the bacterial component, added vancomycin 06/29/2023. Patient Solu-Medrol x2 days. Now on oral prednisone. -follow imaging and oxygen demand closely. -two sets of blood cultures 1 from the and 1 from the are all negative to date -urine antigens for strep pneumo only Legionella are negative. -nasal swab for MRSA is negative and sputum cultures are ordered not yet collected. Status: Acute (2) Pneumonia: Problem details: -left upper lobe. Will need follow-up imaging to assure resolution. -patient understands that I cannot differentiate between a post obstructive mass causing pneumonia and a lobar bacterial pneumonia. Only time and clearance plus or minus bronchoscopy can tell us this Status: Acute (3) RSV infection: Problem details: -supportive care as outlined above Status: Acute (4) CONCHA (acute kidney injury): Problem details: Noted. Improved. Status: Acute (5) Hyponatremia: Problem details: Improved Status: Acute (6) Sepsis: Problem details: Resolved. Status: Acute Subjective Date Seen: 07/01/23 Interval history: Daily Progress Note - Hospital Medicine Day #: 5 CC: Acute hypoxic respiratory failure, positive RSV, left upper lobe pneumonia OVERNIGHT: -oxygen demand is stable, STILL REQUIRING HIGH-FLOW AT 30 L, 40% -pt feels about the same, maybe a little stronger today. -discussed case with Infectious Disease: They recommended MRSA nasal culture, sputum culture, adding vancomycin to her azithromycin/Zosyn regimen. Her strep pneumo and Legionella are negative. Her RSV is known positive. Her COVID and influenza are negative. Her blood cultures remain negative x2 sets. -WBC count remains elevated but down trending -pH is unchanged 7.4. No CO2 retention. -electrolytes and renal function are normal. Mild bump in LFTs. Mild hypokalemia. -CRP is now down trending -procalcitonin is down trending. CXR 06/29 Multifocal pneumonia with interval worsening in the left upper lung field. Recommend continued follow-up to document resolution. Chest CT from 06/29 1. Significant interval increase in size of a dense left upper lobe airspace consolidation, with surrounding ground-glass opacities. 2. New airspace consolidations and ground-glass opacities in the bilateral lungs, compatible with worsening multifocal pneumonia. 3. New small bilateral pleural effusions. Objective: Looks a little better. Coherent. A little tearful this morning. Vitals: see above Lungs: Right side has cleared nicely. Rhonchi and crackles throughout left hemithorax Cardiac: S1S2. Disposition/Potential discharge - Likely to return to previous living situation. Today I spent 50minutes seeing the patient, reviewing Expanse and EPIC notes/diagnostics, discussing the care plan with our care time that includes social work, PT/OT, pharmacy, RT, correction and documenting my impressions and plan in the medical record. Exam Const: Vital Signs, click to edit/add: Vital Signs - 24 hr 06/30/23 18:00 06/30/23 19:32 06/30/23 20:00 Temperature 98.4 F Pulse Rate [Left P ulse Oximeter] 78 Respiratory Rate 22 Blood Pressure [Le ft Arm] 127/66 Blood Pressure [Ri ght Arm] Pulse Oximetry 93 Oxygen Delivery Me thod High Flow Nasal Ca nnula Oxygen Flow Rate 30 Fraction of Inspir ed Oxygen 40 40 40 06/30/23 22:00 06/30/23 23:00 06/30/23 23:00 Temperature Pulse Rate [Left P ulse Oximeter] 78 Respiratory Rate 20 20 Blood Pressure [Le ft Arm] 137/77 Blood Pressure [Ri ght Arm] Pulse Oximetry 92 92 Oxygen Delivery Me thod High Flow Nasal Ca nnula High Flow Nasal Ca nnula Oxygen Flow Rate 30 30 Fraction of Inspir ed Oxygen 40 40 40 07/01/23 00:00 07/01/23 00:00 07/01/23 02:00 Temperature Pulse Rate [Left P ulse Oximeter] Respiratory Rate Blood Pressure [Le ft Arm] Blood Pressure [Ri ght Arm] Pulse Oximetry 92 Oxygen Delivery Me thod Oxygen Flow Rate Fraction of Inspir ed Oxygen 40 40 07/01/23 03:00 07/01/23 04:00 07/01/23 06:17 Temperature 98.3 F Pulse Rate [Left P ulse Oximeter] 83 Respiratory Rate 22 Blood Pressure [Le ft Arm] 145/86 H Blood Pressure [Ri ght Arm] Pulse Oximetry 91 Oxygen Delivery Me thod Oxygen Flow Rate 30 Fraction of Inspir ed Oxygen 40 40 40 07/01/23 07:00 07/01/23 07:00 07/01/23 08:00 Temperature Pulse Rate [Left P ulse Oximeter] 73 Respiratory Rate 20 22 Blood Pressure [Le ft Arm] Blood Pressure [Ri ght Arm] Pulse Oximetry 93 Oxygen Delivery Me thod High Flow Nasal Ca nnula Oxygen Flow Rate 30 Fraction of Inspir ed Oxygen 40 40 07/01/23 09:01 07/01/23 10:00 07/01/23 11:00 Temperature 98.8 F 98.6 F Pulse Rate [Left P ulse Oximeter] 73 81 Respiratory Rate 28 H 20 Blood Pressure [Le ft Arm] Blood Pressure [Ri ght Arm] 134/76 127/68 Pulse Oximetry 88 89 Oxygen Delivery Me thod High Flow Nasal Ca nnula High Flow Nasal Ca nnula Oxygen Flow Rate 30 30 Fraction of Inspir ed Oxygen 40 40 07/01/23 12:00 07/01/23 14:00 07/01/23 15:00 Temperature Pulse Rate [Left P ulse Oximeter] 81 Respiratory Rate 20 Blood Pressure [Le ft Arm] Blood Pressure [Ri ght Arm] Pulse Oximetry Oxygen Delivery Me thod Oxygen Flow Rate Fraction of Inspir ed Oxygen 40 40 07/01/23 15:00 07/01/23 16:00 Temperature Pulse Rate [Left P ulse Oximeter] Respiratory Rate 20 Blood Pressure [Le ft Arm] Blood Pressure [Ri ght Arm] Pulse Oximetry 89 Oxygen Delivery Me thod High Flow Nasal Ca nnula Oxygen Flow Rate 30 Fraction of Inspir ed Oxygen 40 40 Labs Labs: Laboratory Results - last 24 hr 07/01/23 05:25 WBC 14.23 H RBC 3.64 L Hgb 10.6 L Hct 32.3 L MCV 89 MCH 29 MCHC 33 Plt Count 282 VBG pH 7.481 H VBG pCO2 32 L VBG pO2 106.0 H VBG HCO3 24 Sodium 141 Potassium 3.4 L Chloride 111 Carbon Dioxide 22 Anion Gap 8 BUN 30 Creatinine 0.8 Estimated Creat Clear 41.30 Estimated GFR 74 Glucose 113 Calcium 8.5 Total Bilirubin 0.6 AST 44 H ALT 47 H Alkaline Phosphatase 110 C-Reactive Protein 13.8 H Total Protein 5.9 L Albumin 3.0 L
--- NOTE | 2023-07-01 19:19 | PC.NURSE ---
Patient continues on High Flow oxygen. Tolerating this well with sats in the mid 90's. Up to the BR with SBA. Pt complained of loose stools on the overnight however did not have any stools today.
[2023-07-01 21:29] LABS: Total T3 52 ng/dL (80-200)
[2023-07-02] VITALS (17 sets, daily range): BP systolic 111–146; BP diastolic 65–86; PULSE 61–71; RESP 12–22; TEMP 36.4–36.9; O2SAT 89–96
[2023-07-02] MEDS: ENOXAPARIN 40 MG/0.4 ML INJ SUBCUT (00:51)
[2023-07-02] MEDS: AZITHROMYCIN 500 MG in 0.9 % SODIUM CHLORIDE 250 ml 250 ML 255 MG IVPB (00:51)
[2023-07-02] MEDS: PIPERACILLIN/TAZOBACTAM 3.375 GM in 0.9 % SODIUM CHLORIDE Mini-bag 100 ML IVPB ×4 (02:19→20:05)
--- NOTE | 2023-07-02 06:45 | PC.NURSE ---
End of shift [id number]: A&O pleasant and cooperative. VSS and sats have remained >90% on high flow. Pt reports SOB with activity. Denies pain. SBA to bathroom. x2 loose stools mixed with urine. Still needing stool sample. Pt appeared to rest comfortably throughout shift.?
[2023-07-02] MEDS: BUDESONIDE 0.5 MG/2ML NEB NEB ×2 (08:30→21:03)
[2023-07-02] MEDS: SODIUM CHLORIDE 0.9 % (FLUSH) 10 ML SYRINGE 5 ML IVF ×2 (08:30→20:08)
[2023-07-02] MEDS: predniSONE 20 MG TABLET 60 MG PO (08:30)
[2023-07-02] MEDS: 0.9 % SODIUM CHLORIDE 250 ml IV (08:31)
[2023-07-02 12:12] LABS: C.Difficile Negative (Negative); CDIFFEPI 027 PRESUMPTIVE NEGATIVE (Negative)
--- NOTE | 2023-07-02 15:17 | RESP.RT ---
Patient continues to require .40HFNC@ 30Lpm to keep SATs 90-92%. Patient is able to eat and walk without difficulty, but desaturates with activity and has been unable to titrate O2 the past 2 days. She has been working with the Aerobika and coughing up small amounts of mucus. Humidity seems to be helping and she may require a few more days to wean O2. She does not have home O2 currently.
--- NOTE | 2023-07-02 16:56 | PM.IMPN1 ---
Progress Note: A&P Assessment and plan (1) Acute hypoxic respiratory failure: Problem details: -stable overnight. Continues on high-flow O2. 30 L, 40%. Appreciate consult with Infectious Disease. -positive RSV, multi lobar, left upper lobe predominant community-acquired pneumonia. Not immunocompromised. -pulmonary hygiene. Budesonide nebs. P.r.n. DuoNebs. RT to evaluate with ISP and aerobika. -Zosyn and azithromycin for the bacterial component, added vancomycin 06/29/2023. Patient Solu-Medrol x2 days. Now on oral prednisone. -follow imaging and oxygen demand closely. -two sets of blood cultures 1 from the and 1 from the are all negative to date -urine antigens for strep pneumo only Legionella are negative. -nasal swab for MRSA is negative and sputum cultures are ordered not yet collected. -consider reimaging in the next 1-2 days. Status: Acute (2) Pneumonia: Problem details: -left upper lobe. Will need follow-up imaging to assure resolution. -patient understands that I cannot differentiate between a post obstructive mass causing pneumonia and a lobar bacterial pneumonia. Only time and clearance plus or minus bronchoscopy can tell us this Status: Acute (3) RSV infection: Problem details: -supportive care as outlined above Status: Acute (4) CONCHA (acute kidney injury): Problem details: Noted. Improved. Status: Acute (5) Hyponatremia: Problem details: Improved Status: Acute (6) Sepsis: Problem details: Resolved. Status: Acute Plan 1. Reviewed with patient and daughter. They are agreeable. 2. Continue with current plan of care Time Spent With Patient Total time spent: 40 Subjective Date Seen: 07/02/23 Interval history: Daily Progress Note - Hospital Medicine Day #: 6 CC: Acute hypoxic respiratory failure, positive RSV, left upper lobe pneumonia OVERNIGHT: -oxygen demand is stable, STILL REQUIRING HIGH-FLOW AT 30 L, 40% -pt feels about the same, maybe a little stronger today. States she feels almost well enough to get back to work. CXR 06/29 Multifocal pneumonia with interval worsening in the left upper lung field. Recommend continued follow-up to document resolution. Chest CT from 06/29 1. Significant interval increase in size of a dense left upper lobe airspace consolidation, with surrounding ground-glass opacities. 2. New airspace consolidations and ground-glass opacities in the bilateral lungs, compatible with worsening multifocal pneumonia. 3. New small bilateral pleural effusions. Exam Narrative: Exam Narrative: Examined patient her hospital room. No acute distress. Still on high-flow oxygen at 30 liters/minute with FiO2 of 40%. Bilateral rales. Regular heart rate and rhythm. Abdomen with active bowel sounds, soft, nontender. Independent transfer, station, gait. Const: Vital Signs, click to edit/add: Vital Signs - 24 hr 07/01/23 17:42 07/01/23 19:37 07/01/23 19:54 Temperature Pulse Rate [Left P ulse Oximeter] 76 Respiratory Rate 20 Blood Pressure [Le ft Arm] Blood Pressure [Ri ght Arm] 138/84 Pulse Oximetry 94 Oxygen Delivery Me thod High Flow Nasal Ca nnula Oxygen Flow Rate 30 30 Fraction of Inspir ed Oxygen 40 40 40 07/01/23 20:52 07/01/23 23:22 07/01/23 23:24 Temperature Pulse Rate [Left P ulse Oximeter] Respiratory Rate 20 Blood Pressure [Le ft Arm] Blood Pressure [Ri ght Arm] Pulse Oximetry 95 Oxygen Delivery Me thod High Flow Nasal Ca nnula Oxygen Flow Rate 30 Fraction of Inspir ed Oxygen 40 40 40 07/01/23 23:24 07/02/23 00:00 07/02/23 00:58 Temperature 98.7 F Pulse Rate [Left P ulse Oximeter] 68 Respiratory Rate 20 Blood Pressure [Le ft Arm] Blood Pressure [Ri ght Arm] Pulse Oximetry 95 95 Oxygen Delivery Me thod High Flow Nasal Ca nnula Oxygen Flow Rate 30 Fraction of Inspir ed Oxygen 40 40 07/02/23 02:55 07/02/23 02:58 07/02/23 05:00 Temperature 98.5 F Pulse Rate [Left P ulse Oximeter] 70 Respiratory Rate 18 Blood Pressure [Le ft Arm] 111/65 Blood Pressure [Ri ght Arm] Pulse Oximetry 90 Oxygen Delivery Me thod High Flow Nasal Ca nnula Oxygen Flow Rate 30 Fraction of Inspir ed Oxygen 40 40 40 07/02/23 07:00 07/02/23 07:00 07/02/23 07:00 Temperature Pulse Rate [Left P ulse Oximeter] 69 Respiratory Rate 22 12 Blood Pressure [Le ft Arm] Blood Pressure [Ri ght Arm] Pulse Oximetry 93 Oxygen Delivery Me thod High Flow Nasal Ca nnula Oxygen Flow Rate 30 Fraction of Inspir ed Oxygen 40 40 07/02/23 07:00 07/02/23 09:00 07/02/23 10:30 Temperature 97.6 F Pulse Rate [Left P ulse Oximeter] 69 Respiratory Rate 22 Blood Pressure [Le ft Arm] Blood Pressure [Ri ght Arm] 144/76 H Pulse Oximetry 93 Oxygen Delivery Me thod High Flow Nasal Ca nnula Oxygen Flow Rate 30 30 Fraction of Inspir ed Oxygen 40 40 40 07/02/23 11:00 Temperature 98.3 F Pulse Rate [Left P ulse Oximeter] 71 Respiratory Rate 20 Blood Pressure [Le ft Arm] Blood Pressure [Ri ght Arm] 135/72 Pulse Oximetry 89 Oxygen Delivery Me thod High Flow Nasal Ca nnula Oxygen Flow Rate 30 Fraction of Inspir ed Oxygen 40 Documenting provider has reviewed patient's vital signs: yes Labs Labs: Laboratory Results - last 24 hr 06/29/23 07/01/23 06:37 04:39 T3 52 L Stl C. diff Tox B Gene Negative Stl C. diff [id number] PRESUMPTIVE NEGATIVE
--- NOTE | 2023-07-02 18:26 | PC.NURSE ---
End of shift [id number]: Pt A&O and afebrile throughout this shift. VSS with exception to O2 requirements. Pt currently on HFNC 30L: 40 FiO2: 36 degrees. Pt is transitioned to 6L NC with ambulation. O2 sats dip to 88-89% after activity with a < 2 min recovery period. Pt denies any dizziness, nausea or pain throughout the day. Appetite has been poor but slowly increasing today. C. Diff sample collected and resulted negative; x2 very small loose stools today. Continent of B&B. PIV in left FA SL and C/D/I. Scheduled IV Zosyn and IV Vanco given per AUG. Pt's daughter, Jacklyn, visited for majority of afternoon and updates were given. Care ongoing.
[2023-07-03] VITALS (18 sets, daily range): BP systolic 131–146; BP diastolic 66–93; PULSE 56–71; RESP 18–20; TEMP 36.4–37.1; O2SAT 89–97
[2023-07-03] MEDS: ENOXAPARIN 40 MG/0.4 ML INJ SUBCUT (01:11)
[2023-07-03] MEDS: AZITHROMYCIN 500 MG in 0.9 % SODIUM CHLORIDE 250 ml 250 ML 255 MG IVPB (01:11)
[2023-07-03] MEDS: SODIUM CHLORIDE 0.9 % (FLUSH) 10 ML SYRINGE 5 ML IVF ×3 (01:15→20:43)
[2023-07-03] MEDS: PIPERACILLIN/TAZOBACTAM 3.375 GM in 0.9 % SODIUM CHLORIDE Mini-bag 100 ML IVPB ×4 (02:29→20:43)
--- NOTE | 2023-07-03 07:26 | PC.NURSE ---
Pt alert and oriented x3. Afebrile. Pt denies SOB, pain, chest pain, and N/V. Pt is on high flow nasal cannula 30L O2, 40 FIO2, 36 F, maintaining O2 stats of 88-93%. Pt continues to have dry cough. Pt reaching 1200 ml when using?incentive spirometer and coughing after each use no sputum production. Pt is up SBA to bathroom.?Pt slept intermittently throughout night. ??
[2023-07-03] MEDS: predniSONE 20 MG TABLET 60 MG PO (07:53)
[2023-07-03] MEDS: BUDESONIDE 0.5 MG/2ML NEB NEB ×2 (08:02→20:43)
[2023-07-03] MEDS: LACTOBACILLUS ACIDOPHILUS 1 TABLET 2 TAB PO ×3 (09:27→18:03)
--- NOTE | 2023-07-03 12:09 | CRLHL7_ITS ---
For Patients: As a result of the Century Cures Act, medical imaging exams and procedure reports are released immediately into your electronic medical record. You may view this report before your referring provider. If you have questions, please contact your health care provider. INDICATION: Left upper lobe infiltrate, multifocal pneumonia, high oxygen need COMPARISON: CT chest 06/29/2023 TECHNIQUE: CT chest without contrast. Multiplanar axial, coronal, and sagittal reformats are included. MIP images to improve detection of pulmonary nodules are included. Intravenous contrast: None FINDINGS: Lungs: Inspiratory phase imaging. Improving consolidation throughout. No cavitation or necrosis. Mild bibasilar compressive atelectasis. Pleura: Very small right and small left pleural effusion. The left-sided effusion may be minimally larger but is still posteriorly layering without findings of loculation or superimposed infection. No pneumothorax. Airway: Normal tracheobronchial tree. Lymph nodes: No thoracic adenopathy. Mediastinum: No pneumomediastinum. Heart and great vessels: No pericardial effusion. Normal cardiac chamber size. Minimal atherosclerotic plaques. No aortic aneurysm. Bones: No fractures. No focal bone lesions. Normal for age. Chest wall: Normal. No masses. Upper abdomen: Unchanged round coarse splenic calcification. IMPRESSION: 1. Improving multifocal pneumonia without cavitation or necrosis. 2. Left pleural effusion is minimally increased in size but does not demonstrate any findings of loculation or empyema on noncontrast exam. Please note that all CT scans at this facility use dose modulation, iterative reconstruction, and/or weight-based dosing when appropriate to reduce radiation dose to as low as reasonably achievable. Dictated by Kaity Davidson MD @ 07/03/2023 2:34:14 PM (Electronically Signed)
--- NOTE | 2023-07-03 12:49 | W.PM.IDPRG_ITS ---
Visit Information Visit Information Date: 07/03/23 Visit Information: Patient was not seen. Subjective Subjective Subjective: This patient recommendation is based on a telemedicine consult request which was completed asynchronously through chart review and information provided by the primary physician. The patient was not seen or examined today. The evaluation is consultative in nature and all patient care and treatment decisions can either be accepted or rejected by the patient's primary hospital-based treating physician using their own independent medical judgment for their patient. No fevers, VSS but remains on HFNC at 30L/min. 06/26 and 06/27 blood cx x 4 sets total all neg, 06/28 Strep/Legionella urinary Ag both neg, 06/29 MRSA screen neg. Continues on IV Zosyn/vanco/azithromycin for ? superimposed bacterial PNA in setting of + RSV PNA Home Medications and Allergies Home Medications and Allergies Inpatient Medications: Active Medications Generic Name Dose Route Start Last Admin Trade Name Freq PRN Reason Stop Dose Admin Acetaminophen 650 - 975 mg 06/28/23 00:49 06/29/23 02:34 Acetaminophen 325 Mg Tablet PO 975 mg Q6H PRN Administration Albuterol/Ipratropium 1 neb 06/28/23 09:08 07/01/23 10:07 Iprat-Albut 0.5-2.5 Mg/3 Ml Neb IH 1 neb Q2H PRN Administration Benzocaine/Menthol 1 each 06/28/23 20:54 07/01/23 00:41 Benzocaine/Menthol 1 Each Lozenge MUCOUS MEM 1 each Q1H PRN Administration sore/dry throat Budesonide 0.5 mg 06/28/23 21:00 07/03/23 08:02 Budesonide 0.5 Mg/2ml Neb NEB 0.5 mg BID CRISTINA Administration Enoxaparin Sodium 40 mg 06/30/23 01:30 07/03/23 01:11 Enoxaparin 40 Mg/0.4 Ml Inj SUBCUT 40 mg Q24H CRISTINA Administration Guaifenesin 100 - 200 mg 06/28/23 20:54 07/01/23 10:06 Guaifenesin 100 Mg/Ml Cup PO 200 mg Q4H PRN Administration Cough Piperacillin Sod/Tazobactam 100 mls @ 200 mls/hr 06/28/23 02:00 07/03/23 07:46 Sod 3.375 gm/ Sodium Chloride IVPB 200 mls/hr Q6H CRISTINA Administration Vancomycin HCl 1,000 mg/ 260 mls @ 260 mls/hr 06/30/23 12:00 07/02/23 13:59 Sodium Chloride IVPB Infused Q24H CRISTINA Infusion IV Miscellaneous Supplies 1 each 06/30/23 09:00 Pharmacist Consult DAILY CRISTINA Protocol Lactobacillus Acidophilus 2 tab 07/03/23 08:00 07/03/23 09:27 Lactobacillus Acidophilus 1 Tablet PO 2 tab TIDWM CRISTINA Administration Melatonin 3 - 6 mg 06/28/23 00:49 Melatonin 3 Mg Tablet PO HS PRN Insomnia Ondansetron HCl 4 mg 06/28/23 00:49 Ondansetron 2 Mg/Ml Inj IVP Q4H PRN Nausea Prednisone 60 mg 06/30/23 08:00 07/03/23 07:53 Prednisone 20 Mg Tablet PO 60 mg DAILYWM CRISTINA Administration Sodium Chloride 5 ml 06/28/23 00:49 07/03/23 01:15 Sodium Chloride 0.9 % (Flush) 10 Ml Syringe IVF 5 ml .FLUSH PRN Administration Sodium Chloride 5 ml 06/28/23 09:00 07/03/23 07:47 Sodium Chloride 0.9 % (Flush) 10 Ml Syringe IVF 5 ml BID CRISTINA Administration Sodium Chloride 3 ml 06/28/23 09:08 Sodium Chloride 0.9% 3ml Neb NEB Q2H PRN Sodium Chloride 250 ml 06/29/23 09:00 07/03/23 09:27 0.9 % Sodium Chloride 250 Ml IV Not Given Q24H CRISTINA Discontinued Medications Generic Name Dose Route Start Last Admin Trade Name Freq PRN Reason Stop Dose Admin Enoxaparin Sodium 30 mg 06/28/23 01:00 07/02/23 09:27 Enoxaparin 30 Mg/0.3ml Inj SUBCUT Not Given Q24H CRISTINA Enoxaparin Sodium 40 mg 06/28/23 01:30 06/29/23 01:29 Enoxaparin 30 Mg/0.3ml Inj SUBCUT 40 mg Q24H CRISTINA Administration Piperacillin Sod/Tazobactam 100 mls @ 200 mls/hr 06/27/23 22:41 06/28/23 01:32 Sod 3.375 gm/ Sodium Chloride IVPB 06/27/23 22:42 Not Given ONCE ONE Sodium Chloride 1,000 mls @ 75 mls/hr 06/28/23 00:55 07/02/23 09:27 0.9 % Sodium Chloride 1000 Ml IV Infused .[id number] CRISTINA Infusion Piperacillin Sod/Tazobactam 100 mls @ 200 mls/hr 06/28/23 05:00 Sod 3.375 gm/ Sodium Chloride IVPB Q6H CRISTINA Azithromycin 500 mg/ Sodium 255 mls @ 255 mls/hr 06/28/23 01:00 07/03/23 01:11 Chloride IVPB 255 mls/hr Q24H CRISTINA Administration Vancomycin HCl 1,250 mg/ 262.5 mls @ 175 mls/hr 06/29/23 11:15 06/29/23 14:26 Sodium Chloride IVPB 06/29/23 12:44 Infused ONCE ONE Infusion Protocol Methylprednisolone Sodium Succinate 125 mg 06/28/23 09:15 06/29/23 03:15 Methylprednisolone Sod Succ 62.5 Mg/Ml (125) IVP 06/29/23 03:16 125 mg Q6H CRISTINA Administration Methylprednisolone Sodium Succinate 125 mg 06/29/23 09:30 06/30/23 02:55 Methylprednisolone Sod Succ 62.5 Mg/Ml (125) IVP 06/30/23 03:31 125 mg Q6H CRISTINA Administration Allergies Allergy/AdvReac Type Severity Reaction Status Date / Time No Known Drug Allergies Allergy Verified 06/26/23 14:20 Objective - Infectious Disease Objective Vital Signs: Vital Signs - 24 hr 07/02/23 14:00 07/02/23 15:00 07/02/23 15:00 Temperature Pulse Rate [Left Pulse Oximeter] 66 Respiratory Rate 20 18 Blood Pressure [Left Arm] Blood Pressure [Right Arm] Pulse Oximetry 94 Oxygen Delivery Method High Flow Nasal Cannula Oxygen Flow Rate 30 Fraction of Inspired Oxygen 40 40 07/02/23 15:00 07/02/23 16:00 07/02/23 18:00 Temperature 98.2 F Pulse Rate [Left Pulse Oximeter] 66 Respiratory Rate 18 Blood Pressure [Left Arm] Blood Pressure [Right Arm] 140/83 H Pulse Oximetry 93 Oxygen Delivery Method High Flow Nasal Cannula Oxygen Flow Rate 30 Fraction of Inspired Oxygen 40 40 40 07/02/23 20:00 07/02/23 20:10 07/02/23 22:00 Temperature 97.6 F Pulse Rate [Left Pulse Oximeter] 70 Respiratory Rate 18 Blood Pressure [Left Arm] Blood Pressure [Right Arm] 141/86 H Pulse Oximetry 93 Oxygen Delivery Method High Flow Nasal Cannula Oxygen Flow Rate 30 Fraction of Inspired Oxygen 40 40 40 07/02/23 22:15 07/02/23 22:15 07/02/23 22:15 Temperature 97.8 F Pulse Rate [Left Pulse Oximeter] 61 Respiratory Rate 18 18 18 Blood Pressure [Left Arm] Blood Pressure [Right Arm] 146/75 H Pulse Oximetry 92 92 Oxygen Delivery Method High Flow Nasal Cannula High Flow Nasal Cannula Oxygen Flow Rate 30 30 Fraction of Inspired Oxygen 40 40 07/03/23 00:00 07/03/23 00:00 07/03/23 01:25 Temperature 97.6 F Pulse Rate [Left Pulse Oximeter] 60 Respiratory Rate 18 Blood Pressure [Left Arm] Blood Pressure [Right Arm] 133/75 Pulse Oximetry 92 92 Oxygen Delivery Method High Flow Nasal Cannula Oxygen Flow Rate 30 Fraction of Inspired Oxygen 40 40 07/03/23 02:00 07/03/23 03:51 07/03/23 05:52 Temperature Pulse Rate [Left Pulse Oximeter] Respiratory Rate Blood Pressure [Left Arm] Blood Pressure [Right Arm] Pulse Oximetry Oxygen Delivery Method Oxygen Flow Rate Fraction of Inspired Oxygen 40 40 40 07/03/23 07:00 07/03/23 07:00 07/03/23 08:00 Temperature 98.7 F Pulse Rate [Left Pulse Oximeter] 62 Respiratory Rate 20 20 Blood Pressure [Left Arm] 146/83 H Blood Pressure [Right Arm] Pulse Oximetry 91 91 Oxygen Delivery Method High Flow Nasal Cannula High Flow Nasal Cannula Oxygen Flow Rate 30 30 Fraction of Inspired Oxygen 40 40 40 07/03/23 10:00 07/03/23 11:53 07/03/23 12:00 Temperature Pulse Rate [Left Pulse Oximeter] 71 Respiratory Rate 20 Blood Pressure [Left Arm] 131/71 Blood Pressure [Right Arm] Pulse Oximetry 95 Oxygen Delivery Method High Flow Nasal Cannula Oxygen Flow Rate 30 Fraction of Inspired Oxygen 40 40 40 07/03/23 12:46 Temperature Pulse Rate [Left Pulse Oximeter] Respiratory Rate Blood Pressure [Left Arm] Blood Pressure [Right Arm] Pulse Oximetry Oxygen Delivery Method Oxygen Flow Rate 30 Fraction of Inspired Oxygen 40 Narrative: Patient was not seen or examined. Results - Infectious Disease Results Labs: 06/27/23 23:25 Blood Blood Culture - Final NO GROWTH AFTER 5 DAYS 06/27/23 23:11 Blood Blood Culture - Final NO GROWTH AFTER 5 DAYS 06/29/23 13:05 Nares MRSA Screen - Final No MRSA (Methicillin resistant Staph aureus) isolated. Laboratory Tests 07/01/23 07/01/23 06/30/23 Range/Units 05:25 04:39 06:27 WBC 14.23 H 17.13 H (4.50-11.00) K/uL RBC 3.64 L 3.85 L (4.00-5.20) m/uL Hgb 10.6 L 11.4 L (12.0-16.0) gm/dL Hct 32.3 L 34.1 (33.0-51.0) % MCV 89 89 (80-100) fL MCH 29 30 (26-34) pg MCHC 33 33 (32-36) gm/dL RDW Coeff of Willa 14.8 (11.5-15.5) % Plt Count 282 316 (140-440) K/uL Neut % (Auto) 91.0 H (42.0-72.0) % Lymph % (Auto) 4.1 L (20-44) % [place] % (Auto) 3.4 (0.0-11.0) % Eos % (Auto) 0.0 (0.0-7.0) % Baso % (Auto) 0.1 (0.0-3.0) % Neut # (Auto) 15.60 H (1.7-7.0) K/uL Lymph # (Auto) 0.70 L (0.90-2.90) K/uL [place] # (Auto) 0.60 (0.00-0.90) K/UL Eos # (Auto) 0.00 (0.00-0.50) K/uL Baso # (Auto) 0.00 (0.00-0.30) K/uL Abs Immat Gran (auto) 0.20 (0.00-0.30) K/uL Imm/Tot Granulo (auto) 1.4 % Diff Slide Review (Acceptable) VBG pH 7.481 H 7.444 H (7.32-7.43) VBG pCO2 32 L 34 L (40-50) mmHG VBG pO2 106.0 H 56.6 H (25-47) mmHG VBG HCO3 24 23 (21-28) mmol/L Sodium 141 140 (135-149) mmol/L Potassium 3.4 L 3.7 (3.6-5.1) mmol/L Chloride 111 109 (96-114) mmol/L Carbon Dioxide 22 22 (20-32) mmol/L Anion Gap 8 9 (7-15) mEq/L BUN 30 25 (7-30) mg/dL Creatinine 0.8 0.8 (0.5-1.5) mg/dL Estimated Creat Clear 41.30 41.30 Estimated GFR 74 74 ml/min Glucose 113 128 H (60-115) mg/dL Lactate (0.5-1.9) mmol/L Calcium 8.5 8.8 (8.4-10.6) mg/dL Phosphorus (2.5-4.5) mg/dL Magnesium 2.7 H (1.5-2.6) mg/dL Total Bilirubin 0.6 0.7 (0.1-1.5) mg/dL Direct Bilirubin (0.0-0.5) mg/dL GGT 41 (8-55) U/L AST 44 H 39 H (12-35) U/L ALT 47 H 41 H (4-35) U/L Alkaline Phosphatase 110 125 (40-150) U/L Troponin I (0.01-0.04) ng/mL C-Reactive Protein 13.8 H 24.4 H (0.5-1.0) mg/dL NT-Pro-B Natriuret Pep pg/mL Total Protein 5.9 L 6.5 (6.0-8.3) g/dL Albumin 3.0 L 3.3 (3.3-5.0) g/dL Procalcitonin 1.71 H (<0.50) ng/mL TSH (0.270-4.20) uIU/mL Free T4 (0.70-1.85) ng/dL T3 (80-200) ng/dL Urine L. pneumophilia Ag (Negative) Urine Strep pneumoniae Ag (Negative) Stl C. diff Tox B Gene Negative (Negative) Stl C. diff 027-NAP1-BI PRESUMPTIVE NEGATIVE (Negative) Lab Acknowledgement 06/29/23 06/29/2324 Range/Units 12:00 06:37 18:22 WBC 18.62 H (4.50-11.00) K/uL RBC 3.89 L (4.00-5.20) m/uL Hgb 11.4 L (12.0-16.0) gm/dL Hct 34.3 (33.0-51.0) % MCV 88 (80-100) fL MCH 29 (26-34) pg MCHC 33 (32-36) gm/dL RDW Coeff of Willa 14.4 (11.5-15.5) % Plt Count 290 (140-440) K/uL Neut % (Auto) 94.9 H (42.0-72.0) % Lymph % (Auto) 2.5 L (20-44) % [place] % (Auto) 1.9 (0.0-11.0) % Eos % (Auto) 0.0 (0.0-7.0) % Baso % (Auto) 0.1 (0.0-3.0) % Neut # (Auto) 17.70 H (1.7-7.0) K/uL Lymph # (Auto) 0.50 L (0.90-2.90) K/uL [place] # (Auto) 0.40 (0.00-0.90) K/UL Eos # (Auto) 0.00 (0.00-0.50) K/uL Baso # (Auto) 0.00 (0.00-0.30) K/uL Abs Immat Gran (auto) 0.10 (0.00-0.30) K/uL Imm/Tot Granulo (auto) 0.6 % Diff Slide Review (Acceptable) VBG pH 7.457 H (7.32-7.43) VBG pCO2 32 L (40-50) mmHG VBG pO2 69.7 H (25-47) mmHG VBG HCO3 22 (21-28) mmol/L Sodium 138 (135-149) mmol/L Potassium 3.7 (3.6-5.1) mmol/L Chloride 106 (96-114) mmol/L Carbon Dioxide 22 (20-32) mmol/L Anion Gap 10 (7-15) mEq/L BUN 23 (7-30) mg/dL Creatinine 0.9 (0.5-1.5) mg/dL Estimated Creat Clear 41.30 Estimated GFR 64 ml/min Glucose 132 H (60-115) mg/dL Lactate (0.5-1.9) mmol/L Calcium 8.8 (8.4-10.6) mg/dL Phosphorus 3.8 (2.5-4.5) mg/dL Magnesium 2.7 H (1.5-2.6) mg/dL Total Bilirubin 0.8 (0.1-1.5) mg/dL Direct Bilirubin 0.3 (0.0-0.5) mg/dL GGT (8-55) U/L AST 37 H (12-35) U/L ALT 40 H (4-35) U/L Alkaline Phosphatase 130 (40-150) U/L Troponin I 0.02 (0.01-0.04) ng/mL C-Reactive Protein 39.1 H (0.5-1.0) mg/dL NT-Pro-B Natriuret Pep 2550 pg/mL Total Protein 6.6 (6.0-8.3) g/dL Albumin 3.5 (3.3-5.0) g/dL Procalcitonin 3.58 H (<0.50) ng/mL TSH 0.173 L (0.270-4.20) uIU/mL Free T4 1.48 (0.70-1.85) ng/dL T3 52 L (80-200) ng/dL Urine L. pneumophilia Ag L. pneumo Negative (Negative) Urine Strep pneumoniae Ag S. pneumo Negative (Negative) Stl C. diff Tox B Gene (Negative) Stl C. diff [id number]-[id number] (Negative) Lab Acknowledgement Test Added 06/28/23 06/28/23 06/27/23 Range/Units 15:46 06:08 23:11 WBC 18.65 H 18.62 H (4.50-11.00) K/uL RBC 3.88 L 4.20 (4.00-5.20) m/uL Hgb 11.4 L 12.5 (12.0-16.0) gm/dL Hct 34.8 37.7 (33.0-51.0) % MCV 90 90 (80-100) fL MCH 29 30 (26-34) pg MCHC 33 33 (32-36) gm/dL RDW Coeff of Willa 14.4 14.3 (11.5-15.5) % Plt Count 240 248 (140-440) K/uL Neut % (Auto) 94.8 H 95.2 H (42.0-72.0) % Lymph % (Auto) 1.9 L 1.3 L (20-44) % [place] % (Auto) 2.2 2.5 (0.0-11.0) % Eos % (Auto) 0.0 0.0 (0.0-7.0) % Baso % (Auto) 0.1 0.1 (0.0-3.0) % Neut # (Auto) 17.70 H 17.70 H (1.7-7.0) K/uL Lymph # (Auto) 0.40 L 0.20 L (0.90-2.90) K/uL [place] # (Auto) 0.40 0.50 (0.00-0.90) K/UL Eos # (Auto) 0.00 0.00 (0.00-0.50) K/uL Baso # (Auto) 0.00 0.00 (0.00-0.30) K/uL Abs Immat Gran (auto) 0.20 0.20 (0.00-0.30) K/uL Imm/Tot Granulo (auto) 1.0 0.9 % Diff Slide Review Acceptable Review (Acceptable) VBG pH 7.419 (7.32-7.43) VBG pCO2 36 L (40-50) mmHG VBG pO2 37.7 (25-47) mmHG VBG HCO3 24 (21-28) mmol/L Sodium 133 L 131 L (135-149) mmol/L Potassium 4.2 4.4 (3.6-5.1) mmol/L Chloride 100 98 (96-114) mmol/L Carbon Dioxide 26 22 (20-32) mmol/L Anion Gap 7 11 (7-15) mEq/L BUN 33 H 32 H (7-30) mg/dL Creatinine 1.3 1.3 (0.5-1.5) mg/dL Estimated Creat Clear 31.77 31.77 Estimated GFR 41 41 ml/min Glucose 107 114 (60-115) mg/dL Lactate 1.3 (0.5-1.9) mmol/L Calcium 8.4 8.9 (8.4-10.6) mg/dL Phosphorus (2.5-4.5) mg/dL Magnesium 2.6 (1.5-2.6) mg/dL Total Bilirubin (0.1-1.5) mg/dL Direct Bilirubin (0.0-0.5) mg/dL GGT (8-55) U/L AST (12-35) U/L ALT (4-35) U/L Alkaline Phosphatase (40-150) U/L Troponin I < 0.01 L (0.01-0.04) ng/mL C-Reactive Protein 3.1 H (0.5-1.0) mg/dL NT-Pro-B Natriuret Pep pg/mL Total Protein (6.0-8.3) g/dL Albumin (3.3-5.0) g/dL Procalcitonin 4.59 H (<0.50) ng/mL TSH (0.270-4.20) uIU/mL Free T4 (0.70-1.85) ng/dL T3 (80-200) ng/dL Urine L. pneumophilia Ag (Negative) Urine Strep pneumoniae Ag (Negative) Stl C. diff Tox B Gene (Negative) Stl C. diff [id number]-NAP1-BI (Negative) Lab Acknowledgement Test Added Assessment and Plan Assessment and Plan Assessment and Plan: 82yoF with no history of prior drug allergies or past medical history, who presented to [facility] on 06/26/23 with complaints of cough, SOB and INIGUEZ, as well as congestion sx's. Here, she was afebrile, but CXR showed a KENN infiltrate, and subsequent CT chest done on 06/26 showed a mass like airspace consolidation in the KENN, with associated air bronchograms. RVP done on 06/26 returned positive for RSV. Blood cx from 06/26 x 2 were neg. She was initially DC'd that same day with supportive cares to be continued at home for her RSV infection, and a course of PO doxycycline was given as well it seems to cover for a possible bacterial superinfection, in light of her KENN infiltrate noted on her above imaging. She was also planned for repeat imaging down the road it seems to ensure her no underlying KENN was present. However, she returned to [facility] the following day on 06/27 with worsening SOB. At that time, WBC count was up from 12.1 on 06/26 to 18.6, Na was low, and Cr was 1. She was noted to be satting only 81 on RA. CXR was repeated, and this showed worsening of her KENN infiltrate, with c/f a 4 cm KENN mass-like lesion as well. She was admitted, blood cx x 2 were again obtained on 06/27, which again returned neg, and she was started on Zosyn/vanco/azithromycin to cover for a superimposed bacterial PNA pending additional workup. She was also placed on HFNC for her hypoxia. In the interim, Strep and Legionella urinary Ag's were obtained on 06/28 and returned neg. Repeat CT chest was also done on 06/29, and this showed increasing KENN consolidation with new b/l GGOs, as well as new small b/l effusions. ID was therefore consulted on 06/29, and recommended continuing broad spectrum Abx pending the results of her MRSA screen and sputum cx. 06/29 MRSA screen returned neg, and it appears no sputum cx has been able to be collected to date. Currently, she remains afebrile, WBC count is improving. Blood cx from 06/26 and 06/27 are neg, Strep/Legionella urinary Ag's are neg, and MRSA screen is neg. Given her neg MRSA screen would stop IV vancomycin at this point given very low concerns for MRSA PNA. Azithromycin can be stopped after today as well, completing 5 days of TOTAL Abx for ? atypical PNA (Legionella urinary Ag was neg), and given lack of sputum cx data to help narrow Abx further, would simply complete 7 days of TOTAL Zosyn therapy. I do suspect that the majority of her pulmonary sx's and lung findings are from RSV, and unfortunately there is not effective treatment for this virus, especially in the immunocompetent population. Hence, would continue supportive cares for her RSV infection in the interim. I do agree with repeating a CT chest in 2-3 weeks after completion of her Abx course to re-evaluate her KENN site, to ensure no underlying mass is present that would raise c/f malignancy. RECOMMENDATIONS: 1. Given neg MRSA screen, would DC IV vancomycin 2. Would plan to complete 5 days of TOTAL azithromycin 500 mg daily through 07/03/23, and then stop this Abx (Legionella urinary Ag neg) 3. Given no sputum cx to clearly guide therapy to date, would plan at this point to complete 7 days of TOTAL Zosyn therapy from date of 06/28 initiation (through 07/05/23) 4. Please continue supportive cares for her RSV infection in the interim. 5. I do agree with repeating a CT chest in 2-3 weeks after completion of her Abx course to re-evaluate her KENN site, to ensure no underlying mass is present that would raise c/f malignancy. 6. On IV Zosyn and PO azithromycin, please monitor CBC w/dif, CMP at least twice weekly in the hospital 7. If sputum cx is able to be done and shows breakthrough pathogen in setting of clinical worsening, please call ID back to re-evaluate Abx selection ID will otherwise sign off at this point, please page us with any questions- thanks! Madan Marroquin MD, [facility] Division of Infectious Disease
[2023-07-03 13:11] LABS: Hematocrit 35.3 % (33.0-51.0); Hemoglobin* 11.7 gm/dL (12.0-16.0); Mean Corpuscular HGB Conc 33 gm/dL (32-36); Mean Corpuscular Hemoglobin 30 pg (26-34); Mean Corpuscular Volume 89 fL (80-100); Platelet Count* 345 K/uL (140-440); Red Blood Count 3.97 m/uL (4.00-5.20); Slide Review Reflex No; White Blood Count* 13.19 K/uL (4.50-11.00)
[2023-07-03 13:23] LABS: Albumin* 3.5 g/dL (3.3-5.0); Chloride* 109 mmol/L (96-114); Potassium* 3.6 mmol/L (3.6-5.1); Sodium* 140 mmol/L (135-149)
[2023-07-03 13:26] LABS: Anion Gap 8 mEq/L (7-15); Blood Urea Nitrogen* 15 mg/dL (7-30); Calcium* 8.4 mg/dL (8.4-10.6); Carbon Dioxide* 23 mmol/L (20-32); Creatinine* 0.6 mg/dL (0.5-1.5); Estimated Glomerular Filt Rate 90 ml/min; Glucose* 121 mg/dL (60-115); Phosphorus* 3.5 mg/dL (2.5-4.5)
--- NOTE | 2023-07-03 15:29 | P.IMPN_ITS ---
Progress Note: A&P Assessment and plan (1) Acute hypoxic respiratory failure: Problem details: -stable overnight. Continues on high-flow O2. 30 L, 40%. -positive RSV, multi lobar, left upper lobe predominant community-acquired pneumonia. Not immunocompromised. -pulmonary hygiene. Budesonide nebs. P.r.n. DuoNebs. RT to evaluate with ISP and aerobika. -Zosyn and azithromycin (stopped azithromycin on 07/02/2023) for the bacterial component, added vancomycin 06/29/2023. Patient Solu-Medrol x2 days. Now on oral prednisone. -follow imaging and oxygen demand closely. -two sets of blood cultures 1 from the th and 1 from the are all negative to date -urine antigens for strep pneumo only Legionella are negative. -nasal swab for MRSA is negative and sputum cultures are ordered not yet collected. Status: Acute (2) Pneumonia: Problem details: -left upper lobe. -reimaging 07/03/2023 demonstrates marked improvement. Continue current plan of care. Consider discussion with Infectious Disease again. Status: Acute (3) RSV infection: Problem details: -supportive care as outlined above Status: Acute (4) CONCHA (acute kidney injury): Problem details: Noted. Improved. Status: Acute (5) Hyponatremia: Problem details: Improved Status: Acute (6) Sepsis: Problem details: Resolved. Status: Acute Time Spent With Patient Total time spent: 30 minute Subjective Date Seen: 07/03/23 Interval history: Daily Progress Note - Hospital Medicine #: 6 CC: Acute hypoxic respiratory failure, positive RSV, left upper lobe pneumonia OVERNIGHT: -oxygen demand is stable, STILL REQUIRING HIGH-FLOW AT 30 L, 40% -pt feels about the same, maybe a little stronger today. States she feels almost well enough to get back to work. Able to move the incentive spirometer 2000 mL. CXR 06/29 Multifocal pneumonia with interval worsening in the left upper lung field. Recommend continued follow-up to document resolution. Chest CT from 06/29 1. Significant interval increase in size of a dense left upper lobe airspace consolidation, with surrounding ground-glass opacities. 2. New airspace consolidations and ground-glass opacities in the bilateral lungs, compatible with worsening multifocal pneumonia. 3. New small bilateral pleural effusions. Chest CT from 07/03/2023: 1. Improving multifocal pneumonia without cavitation or necrosis. 2. Left pleural effusion is minimally increased in size but does not demonstrate any findings of loculation or empyema on noncontrast exam. Exam 2 Narrative: Exam Narrative: No acute distress. Vision and hearing are grossly normal. Alert and oriented to self, place, time situation. Cooperative friendly. Lungs with scattered rhonchi and rales. Decreased breath sounds left base compared to the right base. Heart tones with regular rhythm. Abdomen with active bowel sounds benign. Transfers independently. Const: Vital Signs, click to edit/add: Vital Signs - 24 hr 07/02/23 16:00 07/02/23 18:00 07/02/23 20:00 Temperature Pulse Rate [Left P ulse Oximeter] Respiratory Rate Blood Pressure [Le ft Arm] Blood Pressure [Ri ght Arm] Pulse Oximetry Oxygen Delivery Me thod Oxygen Flow Rate Fraction of Inspir ed Oxygen 40 40 40 07/02/23 20:10 07/02/23 22:00 07/02/23 22:15 Temperature 97.6 F Pulse Rate [Left P ulse Oximeter] 70 Respiratory Rate 18 18 Blood Pressure [Le ft Arm] Blood Pressure [Ri ght Arm] 141/86 H Pulse Oximetry 93 Oxygen Delivery Me thod High Flow Nasal Ca nnula Oxygen Flow Rate 30 Fraction of Inspir ed Oxygen 40 40 07/02/23 22:15 07/02/23 22:15 07/03/23 00:00 Temperature 97.8 F Pulse Rate [Left P ulse Oximeter] 61 Respiratory Rate 18 18 Blood Pressure [Le ft Arm] Blood Pressure [Ri ght Arm] 146/75 H Pulse Oximetry 92 92 92 Oxygen Delivery Me thod High Flow Nasal Ca nnula High Flow Nasal Ca nnula Oxygen Flow Rate 30 30 Fraction of Inspir ed Oxygen 40 40 07/03/23 00:00 07/03/23 01:25 07/03/23 02:00 Temperature 97.6 F Pulse Rate [Left P ulse Oximeter] 60 Respiratory Rate 18 Blood Pressure [Le ft Arm] Blood Pressure [Ri ght Arm] 133/75 Pulse Oximetry 92 Oxygen Delivery Me thod High Flow Nasal Ca nnula Oxygen Flow Rate 30 Fraction of Inspir ed Oxygen 40 40 40 07/03/23 03:51 07/03/23 05:52 07/03/23 07:00 Temperature Pulse Rate [Left P ulse Oximeter] Respiratory Rate 20 Blood Pressure [Le ft Arm] Blood Pressure [Ri ght Arm] Pulse Oximetry 91 Oxygen Delivery Me thod High Flow Nasal Ca nnula Oxygen Flow Rate 30 Fraction of Inspir ed Oxygen 40 40 40 07/03/23 07:00 07/03/23 08:00 07/03/23 10:00 Temperature 98.7 F Pulse Rate [Left P ulse Oximeter] 62 Respiratory Rate 20 Blood Pressure [Le ft Arm] 146/83 H Blood Pressure [Ri ght Arm] Pulse Oximetry 91 Oxygen Delivery Me thod High Flow Nasal Ca nnula Oxygen Flow Rate 30 Fraction of Inspir ed Oxygen 40 40 40 07/03/23 11:53 07/03/23 12:00 07/03/23 12:46 Temperature Pulse Rate [Left P ulse Oximeter] 71 Respiratory Rate 20 Blood Pressure [Le ft Arm] 131/71 Blood Pressure [Ri ght Arm] Pulse Oximetry 95 Oxygen Delivery Me thod High Flow Nasal Ca nnula Oxygen Flow Rate 30 30 Fraction of Inspir ed Oxygen 40 40 40 07/03/23 13:50 Temperature Pulse Rate [Left P ulse Oximeter] Respiratory Rate Blood Pressure [Le ft Arm] Blood Pressure [Ri ght Arm] Pulse Oximetry Oxygen Delivery Me thod Oxygen Flow Rate Fraction of Inspir ed Oxygen 40 Labs Labs: Laboratory Results - last 24 hr 07/03/23 13:00 WBC 13.19 H RBC 3.97 L Hgb 11.7 L Hct 35.3 MCV 89 MCH 30 MCHC 33 Plt Count 345 Sodium 140 Potassium 3.6 Chloride 109 Carbon Dioxide 23 Anion Gap 8 BUN 15 Creatinine 0.6 Estimated Creat Clear 41.30 Estimated GFR 90 Glucose 121 H Calcium 8.4 Phosphorus 3.[address] scan - chest: Attestation: I have reviewed the pertinent imaging results. Radiologist's impression: 1. Improving multifocal pneumonia without cavitation or necrosis. 2. Left pleural effusion is minimally increased in size but does not demonstrate any findings of loculation or empyema on noncontrast exam.
--- NOTE | 2023-07-03 15:50 | PC.NURSE ---
End of shift [id number] - Pt alert, oriented, cooperative and pleasant during shift. Reported feeling better today and reported to RN that she had a good night's rest. Pt tolerating regular diet and fluids and up to bathroom with standby assistance. Denies pain, nausea, dizziness. Mild SOB noted when ambulating to bathroom and after coughing episodes. No sputum observed. Pt tolerating high flow nasal cannula to maintain O2 saturation above 90% per orders. Pt uses nasal cannula at 6L when using bathroom to maintain O2 saturation. Reports to RN that today is the first day that food hasn't tasted like medicine and she appeared pleased with this improvement. Pt up to chair during day and appears to be resting comfortably at end of shift.
[2023-07-03] MEDS: 0.9 % SODIUM CHLORIDE 250 ml IV (20:44)
--- NOTE | 2023-07-03 22:18 | PC.NURSE ---
End of Shift: Patient pleasant and cooperative. Afebrile. Denies pain. Continues on HFNC 25L 40% to keep sats greater than 90%. Up to chair and bathroom with SBA. Tolerating regular diet with no nausea.
[2023-07-04] VITALS (15 sets, daily range): BP systolic 117–142; BP diastolic 73–88; PULSE 62–70; RESP 16–20; TEMP 36.6–36.8; O2SAT 91–96
[2023-07-04] MEDS: ENOXAPARIN 40 MG/0.4 ML INJ SUBCUT (01:43)
[2023-07-04] MEDS: PIPERACILLIN/TAZOBACTAM 3.375 GM in 0.9 % SODIUM CHLORIDE Mini-bag 100 ML IVPB ×4 (01:44→20:17)
[2023-07-04] MEDS: SODIUM CHLORIDE 0.9 % (FLUSH) 10 ML SYRINGE 5 ML IVF ×3 (01:44→20:17)
--- NOTE | 2023-07-04 05:15 | PC.NURSE ---
Pt alert and oriented x3. Afebrile. Pt denies SOB, pain, chest pain, and N/V. Pt is on high flow nasal cannula 25L O2, 40 FIO2, 36 F, maintaining O2 stats of 89-93%, pt is noted to breath through mouth when asleep. Pt continues to have dry cough. Pt reaching 1250 ml when using?incentive spirometer and coughing after each use.?Pt slept intermittently throughout night. ??
[2023-07-04] MEDS: LACTOBACILLUS ACIDOPHILUS 1 TABLET 2 TAB PO ×3 (08:11→17:50)
[2023-07-04] MEDS: predniSONE 20 MG TABLET 60 MG PO (08:11)
[2023-07-04] MEDS: BUDESONIDE 0.5 MG/2ML NEB NEB ×2 (08:12→20:17)
--- NOTE | 2023-07-04 15:54 | RESP.RT ---
Pt weaned down on HFNC. She is on 15L at 25% with a SPO2 of 95% She is tolerating well. Using unit for the heated humidity, it seems as this may have assisted to improve infiltrate with pneumonia. She has been on low flow oxygen today to ambulate in hallway. Would DC HFNC unit by Sunday. She is working well with her aerobika. Doing it independently.
--- NOTE | 2023-07-04 15:55 | PM.IMPN1 ---
Progress Note: A&P Assessment and plan (1) Acute hypoxic respiratory failure: Problem details: -stable overnight. Continues on high-flow O2. 30 L, 40%. -positive RSV, multi lobar, left upper lobe predominant community-acquired pneumonia. Not immunocompromised. -pulmonary hygiene. Budesonide lexs. P.rsarah Sherwood. RT to evaluate with ISP and aerobika. -Zosyn and azithromycin (stopped azithromycin on 07/02/2023) for the bacterial component, added vancomycin 06/29/2023. Patient Solu-Medrol x2 days, then on oral prednisone 60 mg daily x5 days, then stop on 07/04/2023. -follow imaging and oxygen demand closely. -two sets of blood cultures 1 from the and 1 from the are all negative to date -urine antigens for strep pneumo only Legionella are negative. -nasal swab for MRSA is negative and sputum cultures are ordered not yet collected. Status: Acute (2) Pneumonia: Problem details: -left upper lobe. -reimaging 07/03/2023 demonstrates marked improvement. Infectious Disease his recommended discontinuation of vancomycin, discontinuation of azithromycin, complete full 7 day course of piperacillin with tazobactam, which would make the last dose at the end of the day on 07/04/2023. Status: Acute (3) RSV infection: Problem details: -supportive care as outlined above Status: Acute (4) CONCHA (acute kidney injury): Problem details: Noted. Improved. Status: Acute (5) Hyponatremia: Problem details: Improved Status: Acute (6) Sepsis: Problem details: Resolved. Status: Acute Plan 1. Patient agreeable with above stated plans and recommendations. Time Spent With Patient Total time spent: 35 minute Subjective Date Seen: 07/04/23 Interval history: Daily Progress Note - Hospital Medicine Day #: 7 CC: Acute hypoxic respiratory failure, positive RSV, left upper lobe pneumonia OVERNIGHT: -oxygen demand is stable, STILL REQUIRING HIGH-FLOW AT 25 LPM, 35% -pt feels a little stronger today. States she feels almost well enough to get back to work. Able to move the incentive spirometer 2000 mL still. CXR 06/29 Multifocal pneumonia with interval worsening in the left upper lung field. Recommend continued follow-up to document resolution. Chest CT from 06/29 1. Significant interval increase in size of a dense left upper lobe airspace consolidation, with surrounding ground-glass opacities. 2. New airspace consolidations and ground-glass opacities in the bilateral lungs, compatible with worsening multifocal pneumonia. 3. New small bilateral pleural effusions. Chest CT from 07/03/2023: 1. Improving multifocal pneumonia without cavitation or necrosis. 2. Left pleural effusion is minimally increased in size but does not demonstrate any findings of loculation or empyema on noncontrast exam. Exam Narrative: Exam Narrative: Examined patient in her hospital room. Appears comfortable no acute distress. Lungs with few scattered rhonchi but no obvious rales. Heart tones with regular rhythm. Abdomen benign. Extremities without edema. Independent with transfer, station, and gait. No focal motor neurologic deficit. Skin dry and intact. No rashes, petechiae, jaundice. Const: Vital Signs, click to edit/add: Vital Signs - 24 hr 07/03/23 16:00 07/03/23 18:00 07/03/23 19:00 Temperature 98.1 F Pulse Rate [Left P ulse Oximeter] 69 Respiratory Rate 20 Blood Pressure [Le ft Arm] Blood Pressure [Ri ght Arm] 138/77 Pulse Oximetry 95 Oxygen Delivery Me thod High Flow Nasal Ca nnula Oxygen Flow Rate 25 Fraction of Inspir ed Oxygen 40 40 40 07/03/23 20:00 07/03/23 22:00 07/03/23 23:30 Temperature Pulse Rate [Left P ulse Oximeter] 56 L Respiratory Rate 18 Blood Pressure [Le ft Arm] Blood Pressure [Ri ght Arm] Pulse Oximetry Oxygen Delivery Me thod Oxygen Flow Rate Fraction of Inspir ed Oxygen 40 40 07/03/23 23:30 07/03/23 23:30 07/04/23 00:00 Temperature 98.2 F Pulse Rate [Left P ulse Oximeter] 56 L Respiratory Rate 20 18 Blood Pressure [Le ft Arm] Blood Pressure [Ri ght Arm] 135/66 Pulse Oximetry 94 94 93 Oxygen Delivery Me thod High Flow Nasal Ca nnula High Flow Nasal Ca nnula Oxygen Flow Rate 25 25 Fraction of Inspir ed Oxygen 40 40 07/04/23 00:00 07/04/23 01:55 07/04/23 02:00 Temperature 98.1 F Pulse Rate [Left P ulse Oximeter] 70 Respiratory Rate 18 Blood Pressure [Le ft Arm] Blood Pressure [Ri ght Arm] 142/88 H Pulse Oximetry 93 Oxygen Delivery Me thod High Flow Nasal Ca nnula Oxygen Flow Rate 25 Fraction of Inspir ed Oxygen 40 40 40 07/04/23 04:00 07/04/23 06:00 07/04/23 07:00 Temperature Pulse Rate [Left P ulse Oximeter] Respiratory Rate 20 Blood Pressure [Le ft Arm] Blood Pressure [Ri ght Arm] Pulse Oximetry 93 Oxygen Delivery Me thod High Flow Nasal Ca nnula Oxygen Flow Rate 25 Fraction of Inspir ed Oxygen 40 40 40 07/04/23 07:00 07/04/23 08:00 07/04/23 09:24 Temperature 97.8 F Pulse Rate [Left P ulse Oximeter] 67 Respiratory Rate 20 Blood Pressure [Le ft Arm] 132/73 Blood Pressure [Ri ght Arm] Pulse Oximetry 93 Oxygen Delivery Me thod High Flow Nasal Ca nnula Oxygen Flow Rate 25 Fraction of Inspir ed Oxygen 40 40 30 07/04/23 12:00 07/04/23 12:30 Temperature 98.2 F Pulse Rate [Left P ulse Oximeter] 66 Respiratory Rate 20 Blood Pressure [Le ft Arm] 117/85 Blood Pressure [Ri ght Arm] Pulse Oximetry 96 Oxygen Delivery Me thod High Flow Nasal Ca nnula Oxygen Flow Rate 25 Fraction of Inspir ed Oxygen 35 35 Documenting provider has reviewed patient's vital signs: yes
[2023-07-04] MEDS: 0.9 % SODIUM CHLORIDE 250 ml IV (20:18)
--- NOTE | 2023-07-04 20:33 | PC.NURSE ---
End of shift [id number] ? Pt alert, oriented, cooperative and pleasant during shift. Standby assist to bathroom and in halls. Pt experienced functional incontinence of bowels x 2 during shift. Stated that she ?didn't feel like she could hold it? and reported that coughing episodes and antibiotic medications contributed to incontinence. Probiotics given per MAR to help with soft stool and RN provided education regarding diet choices to help with gut health. Pt tolerating high flow nasal cannula and maintaining O2 saturation at 90% or greater per order. Pt also tolerating nasal cannula at 6L when ambulating. Tolerating regular food and fluids. Pt denies pain, nausea, dizziness. Mild SOB noted after exertion and after coughing episodes. Pt appears to be resting comfortably at end of shift. ?
[2023-07-05] VITALS (12 sets, daily range): BP systolic 113–127; BP diastolic 42–76; PULSE 59–71; RESP 16–20; TEMP 36.6–36.8; O2SAT 90–96
[2023-07-05] MEDS: ENOXAPARIN 40 MG/0.4 ML INJ SUBCUT (01:49)
[2023-07-05] MEDS: SODIUM CHLORIDE 0.9 % (FLUSH) 10 ML SYRINGE 5 ML IVF ×3 (01:49→20:38)
[2023-07-05] MEDS: PIPERACILLIN/TAZOBACTAM 3.375 GM in 0.9 % SODIUM CHLORIDE Mini-bag 100 ML IVPB ×2 (01:49→08:06)
--- NOTE | 2023-07-05 05:51 | PC.NURSE ---
[id number] Pt pleasant and cooperative, maintaining sats in 90's with HFNC at 15L 25%. encouraged pt to walk last evening but pt declined, she said she will walk more during the day today. 5LPM NC when ambulating to BR, sats in upper 90's upon return. denies pain, sob, difficulty breathing, N/V.
[2023-07-05] MEDS: LACTOBACILLUS ACIDOPHILUS 1 TABLET 2 TAB PO ×3 (08:05→17:48)
[2023-07-05] MEDS: BUDESONIDE 0.5 MG/2ML NEB NEB ×2 (08:06→20:37)
[2023-07-05 10:57] LABS: Hematocrit 36.1 % (33.0-51.0); Hemoglobin* 11.7 gm/dL (12.0-16.0); Mean Corpuscular HGB Conc 32 gm/dL (32-36); Mean Corpuscular Hemoglobin 29 pg (26-34); Mean Corpuscular Volume 90 fL (80-100); Platelet Count* 369 K/uL (140-440); Red Blood Count 4.03 m/uL (4.00-5.20)
[2023-07-05 11:03] LABS: Chloride* 108 mmol/L (96-114)
[2023-07-05 11:04] LABS: Potassium* 3.1 mmol/L (3.6-5.1); Sodium* 142 mmol/L (135-149)
[2023-07-05 11:06] LABS: Creatinine* 0.7 mg/dL (0.5-1.5); Estimated Glomerular Filt Rate 87 ml/min
[2023-07-05 11:07] LABS: Anion Gap 11 mEq/L (7-15); Blood Urea Nitrogen* 12 mg/dL (7-30); Calcium* 8.4 mg/dL (8.4-10.6); Carbon Dioxide* 23 mmol/L (20-32); Glucose* 108 mg/dL (60-115)
[2023-07-05 11:10] LABS: C Reactive Protein* 2.3 mg/dL (0.5-1.0)
[2023-07-05 11:16] LABS: Slide Review Reflex No
[2023-07-05 11:19] LABS: HCO3 VBG 24 mmol/L (21-28); PCO2 VBG 30 mmHG (40-50); PO2 VBG 40.3 mmHG (25-47)
[2023-07-05 11:24] LABS: Procalcitonin* 0.09 ng/mL (<0.50)
--- NOTE | 2023-07-05 16:19 | PM.IMPN1 ---
Progress Note: A&P Assessment and plan (1) Acute hypoxic respiratory failure: Problem details: -stable overnight. Continues on high-flow O2. 25 L, 35%. -positive RSV, multi lobar, left upper lobe predominant community-acquired pneumonia. Not immunocompromised. -pulmonary hygiene. Budesonide lexs. P.rsarah Sherwood. RT to evaluate with ISP and aerobika. -Zosyn and azithromycin (stopped azithromycin on 07/02/2023) for the bacterial component, added vancomycin 06/29/2023. Patient Solu-Medrol x2 days, then on oral prednisone 60 mg daily x5 days, then stop on 07/04/2023. -follow imaging and oxygen demand closely. -two sets of blood cultures 1 from the and 1 from the are all negative to date -urine antigens for strep pneumo only Legionella are negative. -nasal swab for MRSA is negative and sputum cultures are ordered not yet collected. -increased activity today and assessed for home oxygen need. Status: Acute (2) Pneumonia: Problem details: -left upper lobe. -reimaging 07/03/2023 demonstrates marked improvement. Infectious Disease his recommended discontinuation of vancomycin, discontinuation of azithromycin, complete full 7 day course of piperacillin with tazobactam, which would make the last dose at the end of the day on 07/04/2023. -will need reimaging with CT scan of chest without contrast in 3-6 weeks. Status: Acute (3) RSV infection: Problem details: -supportive care as outlined above Status: Acute (4) CONCHA (acute kidney injury): Problem details: Noted. Improved. Status: Acute (5) Hyponatremia: Problem details: Improved Status: Acute (6) Sepsis: Problem details: Resolved. Status: Acute Plan 1. Reviewed impression with patient. Answered her questions. She is agreeable to above stated plans recommendations. Time Spent With Patient Total time spent: 30 min Subjective Date Seen: 07/05/23 Interval history: Daily Progress Note - Hospital Medicine #: 8 CC: Acute hypoxic respiratory failure, positive RSV, left upper lobe pneumonia OVERNIGHT: -oxygen demand is stable, STILL USING HIGH-FLOW AT 25 LPM, 35% -pt feels a little stronger today. States she feels almost well enough to get back to work. Able to move the incentive spirometer 2000 mL still. -tolerating increased activities including in the halls. CXR 06/29 Multifocal pneumonia with interval worsening in the left upper lung field. Recommend continued follow-up to document resolution. Chest CT from 06/29 1. Significant interval increase in size of a dense left upper lobe airspace consolidation, with surrounding ground-glass opacities. 2. New airspace consolidations and ground-glass opacities in the bilateral lungs, compatible with worsening multifocal pneumonia. 3. New small bilateral pleural effusions. Chest CT from 07/03/2023: 1. Improving multifocal pneumonia without cavitation or necrosis. 2. Left pleural effusion is minimally increased in size but does not demonstrate any findings of loculation or empyema on noncontrast exam. Exam Narrative: Exam Narrative: Examined patient in her hospital room. Vision and hearing grossly normal. Alert and oriented to self, place, time situation. For the, articulate, cooperative. Lungs with scattered rhonchi. Heart tones with regular rhythm. Abdomen benign. Independent transfer, station, and gait. No focal neurologic deficits. Const: Vital Signs, click to edit/add: Vital Signs - 24 hr 07/04/23 17:00 07/04/23 19:00 07/04/23 19:00 Temperature 98.1 F Pulse Rate [Left P ulse Oximeter] 64 Respiratory Rate 18 Blood Pressure [Ri ght Arm] 139/80 Pulse Oximetry 96 Oxygen Delivery Me thod High Flow Nasal Ca nnula Oxygen Flow Rate 15 Fraction of Inspir ed Oxygen 35 25 25 07/04/23 21:00 07/04/23 22:06 07/04/23 22:06 Temperature Pulse Rate [Left P ulse Oximeter] Respiratory Rate 18 Blood Pressure [Ri ght Arm] Pulse Oximetry Oxygen Delivery Me thod Oxygen Flow Rate Fraction of Inspir ed Oxygen 25 25 07/04/23 22:06 07/04/23 22:06 07/05/23 00:00 Temperature 98.0 F Pulse Rate [Left P ulse Oximeter] 62 Respiratory Rate 18 16 Blood Pressure [Ri ght Arm] 136/73 Pulse Oximetry 94 94 94 Oxygen Delivery Me thod High Flow Nasal Ca nnula High Flow Nasal Ca nnula Oxygen Flow Rate 15 15 Fraction of Inspir ed Oxygen 25 25 07/05/23 01:00 07/05/23 02:00 07/05/23 02:00 Temperature 98.1 F Pulse Rate [Left P ulse Oximeter] 59 L Respiratory Rate 16 Blood Pressure [Ri ght Arm] 122/76 Pulse Oximetry 93 Oxygen Delivery Me thod High Flow Nasal Ca nnula Oxygen Flow Rate 15 Fraction of Inspir ed Oxygen 25 25 25 07/05/23 05:00 07/05/23 07:00 07/05/23 07:00 Temperature Pulse Rate [Left P ulse Oximeter] Respiratory Rate 20 Blood Pressure [Ri ght Arm] Pulse Oximetry 94 Oxygen Delivery Me thod High Flow Nasal Ca nnula Oxygen Flow Rate 15 Fraction of Inspir ed Oxygen 25 25 25 07/05/23 07:00 07/05/23 08:53 07/05/23 09:00 Temperature Pulse Rate [Left P ulse Oximeter] 71 Respiratory Rate 20 Blood Pressure [Ri ght Arm] 123/42 L Pulse Oximetry 94 Oxygen Delivery Me thod High Flow Nasal Ca nnula Oxygen Flow Rate 15 15 Fraction of Inspir ed Oxygen 25 25 25 07/05/23 11:00 07/05/23 11:00 07/05/23 13:42 Temperature 97.8 F Pulse Rate [Left P ulse Oximeter] 67 Respiratory Rate 20 Blood Pressure [Ri ght Arm] 113/66 Pulse Oximetry 96 Oxygen Delivery Me thod High Flow Nasal Ca nnula Oxygen Flow Rate 15 Fraction of Inspir ed Oxygen 25 25 25 07/05/23 15:00 07/05/23 15:00 Temperature Pulse Rate [Left P ulse Oximeter] Respiratory Rate Blood Pressure [Ri ght Arm] Pulse Oximetry 92 Oxygen Delivery Me thod High Flow Nasal Ca nnula Oxygen Flow Rate 15 Fraction of Inspir ed Oxygen 25 25 Labs Labs: Laboratory Results - last 24 hr 07/05/23 07/05/23 10:42 11:14 WBC 12.20 H RBC 4.03 Hgb 11.7 L Hct 36.1 MCV 90 MCH 29 MCHC 32 Plt Count 369 VBG pH 7.500 H VBG pCO2 30 L VBG pO2 40.3 VBG HCO3 24 Sodium 142 Potassium 3.1 L Chloride 108 Carbon Dioxide 23 Anion Gap 11 BUN 12 Creatinine 0.7 Estimated Creat Clear 41.30 Estimated GFR 87 Glucose 108 Calcium 8.4 C-Reactive Protein 2.3 H Procalcitonin 0.09
[2023-07-05] MEDS: POTASSIUM BICARB 25 MEQ EFFERVESCENT TAB PO ×3 (17:48→20:22)
--- NOTE | 2023-07-05 19:34 | PC.NURSE ---
End of shift [id number] ? Pt alert, oriented, cooperative and pleasant during shift. Standby assist to bathroom and in halls. Pt experienced functional incontinence of bowels x 1 during shift. Pt reported using bedside commode was ?helpful? to aid in quick transfer from bed. Probiotics given per MAR to help with soft stool. Pt tolerating high flow nasal cannula and maintaining O2 saturation at 90% or greater per order. Pt also tolerating nasal cannula at 2L when ambulating. Pt was up walking halls x 2 during shift, able to ween from 3L O2 to 2L O2 with no SOB reported. Saturation maintained 98%, RT informed of pt progress and recommendation was given to RN to attempt walk in [place] with 0L O2 and see how pt tolerates. Tolerating regular food and fluids. Pt denies pain, nausea, dizziness. Appears to be resting comfortably at end of shift. ?
[2023-07-06] VITALS (7 sets, daily range): BP systolic 110–139; BP diastolic 56–75; PULSE 62–64; RESP 16; TEMP 36.8; O2SAT 83–90
[2023-07-06] MEDS: ENOXAPARIN 40 MG/0.4 ML INJ SUBCUT (02:22)
--- NOTE | 2023-07-06 05:59 | PC.NURSE ---
[id number] Pt pleasant and cooperative, using bsc ind due to being hooked up to HFNC. no episodes of incontinence due to this. HFNC settings at beginning of shift were 15L 21%, increased to 15L 25% during night due to pt sats 82% while sleeping for >5 min. sats 88-92% with HFNC at 15L 25%. denies SOB, pain, N/V.
[2023-07-06] MEDS: LACTOBACILLUS ACIDOPHILUS 1 TABLET 2 TAB PO ×2 (09:17→12:55)
[2023-07-06] MEDS: BUDESONIDE 0.5 MG/2ML NEB NEB (09:18)
--- NOTE | 2023-07-06 11:26 | PM.DS1 ---
DS: Providers Provider Date Seen: 07/06/23 Date of admission: 06/28/23 00:49 Primary care physician: Marycruz Mills MD Admitting Clinician: Kalpesh Alvarez MD Consults: 06/28/23 00:49 Consult to Respiratory Therapy [CONS] Routine Comment: Reason(s) for RT Consult:: Consult 06/29/23 10:49 Consult to Infectious Diseases [CONS] Routine Comment: Consulting Provider: [facility] Consult priority: Routine Has provider been notified: Yes Call back required?: No Attending Physician on discharge: Verona Gamino MD [facility] Date of Discharge: 07/06/23 DS: Diagnosis Discharge Diagnosis (1) Acute hypoxic respiratory failure: Status: Acute Problem details: -nasal cannula O2, humidified high-flow O2 were needed during her 9 day stay for RSV and community-acquired pneumonia. She is discharged on room air. -positive RSV, multi lobar, left upper lobe predominant community-acquired pneumonia. Not immunocompromised. -negative blood cultures. Negative MRSA swab. Negative Legionella and strep pneumo antigens. -treated with IV Zosyn, azithromycin, vancomycin. IV Solu-Medrol and p.o. prednisone were also adjunct to therapy. -patient is being discharged on p.o. Levaquin, p.o. prednisone taper, albuterol p.r.n. and probiotics. (2) Pneumonia: Status: Acute Problem details: -left upper lobe. -while resolution was demonstrated on imaging, follow-up imaging in 3-6 weeks to rule out a postobstructive mass is necessary. (3) RSV infection: Status: Acute Problem details: -supportive care as outlined above DS: Summary Hospital Course Hospital Course: FINAL DIAGNOSIS/FOLLOW UP ISSUES: 1. Hypoxic respiratory failure/community-acquired pneumonia/RSV: Patient is being discharged after 9 days. She is on room air. She is being discharged on oral Levaquin and oral prednisone. She will need follow-up imaging in 3-6 weeks to assure clearance of that left upper lobe. There was concern of a possible postobstructive mass. It is unclear at the time of discharge is this patient is slowly has pneumonia verses an underlying mass that led to RSV and pneumonia. BRIEF HOSPITAL COURSE: Patient was admitted for 9 days. Synopsis of acute inpatient issues are outlined above. Chronic medical conditions with notable findings outlined above. Patient was admitted for hypoxic respiratory failure. She was positive for RSV and had a left upper lobe community-acquired pneumonia. She was treated with IV antibiotics, steroids. She worsened in the 1st 24-48 hours. She was placed on high-flow humidified oxygen support. She improved throughout the rest of her stay. She needs follow-up imaging as described above. DISCHARGE MEDICATIONS: Levaquin for 5 more days, 500 mg Prednisone taper Albuterol p.r.n. Probiotics p.r.n. Specific instructions to the patient and follow-up are outlined below. REVIEW OF SYSTEMS No new chest pain or dyspnea Pain controlled No voiding difficulties Tolerating diet challenge PHYSICAL EXAM: CONSTITUTIONAL: Much improved. VITAL SIGNS: see record. HEENT: Normocephalic, atraumatic. PERRL, EOMI, conjunctivae pink, no scleral icterus. Ears and nose externally normal. Pharynx normal. NECK: No JVD. No carotid bruit, no thyromegaly, no adenopathy. CHEST: Clear to auscultation bilaterally. HEART: S1 and S2 normal. Edema ABDOMEN: Soft, nontender. Normal bowel sounds. MUSCULOSKELETAL: No gross joint deformity or swelling. NEURO: Cranial nerves intact. Grossly intact. No asymmetric findings. SKIN: No rashes, petechiae, concerning changes PSYCHIATRIC: Mood euthymic. DISPOSITION: Home with friends and family. Time spent on discharge 37 minutes. Status at Discharge Functional status at discharge: uses cane/walker Overall status at discharge: patient is progressing back to baseline Time Spent with Patient Time attestation: Total time spent providing and/or coordinating discharge services: Time spent: Greater than 30 minutes Exam Const: Vital Signs, click to edit/add: Vital Signs - 24 hr 07/05/23 13:42 07/05/23 15:00 07/05/23 15:00 Temperature Pulse Rate [Left P ulse Oximeter] Respiratory Rate Blood Pressure [Ri ght Arm] Pulse Oximetry 92 Oxygen Delivery Me thod High Flow Nasal Ca nnula Oxygen Flow Rate 15 Fraction of Inspir ed Oxygen 25 25 25 07/05/23 17:00 07/05/23 19:00 07/05/23 19:00 Temperature 98.2 F Pulse Rate [Left P ulse Oximeter] 65 Respiratory Rate 18 Blood Pressure [Ri ght Arm] 127/68 Pulse Oximetry 92 Oxygen Delivery Me thod High Flow Nasal Ca nnula Oxygen Flow Rate 15 Fraction of Inspir ed Oxygen 25 21 21 07/05/23 21:00 07/05/23 23:00 07/05/23 23:00 Temperature Pulse Rate [Left P ulse Oximeter] Respiratory Rate 16 Blood Pressure [Ri ght Arm] Pulse Oximetry 92 Oxygen Delivery Me thod High Flow Nasal Ca nnula Oxygen Flow Rate 15 Fraction of Inspir ed Oxygen 21 21 21 07/05/23 23:00 07/06/23 00:00 07/06/23 01:00 Temperature Pulse Rate [Left P ulse Oximeter] 63 Respiratory Rate 16 Blood Pressure [Ri ght Arm] Pulse Oximetry 92 88 Oxygen Delivery Me thod High Flow Nasal Ca nnula Oxygen Flow Rate 15 Fraction of Inspir ed Oxygen 21 21 07/06/23 01:07 07/06/23 03:00 07/06/23 03:00 Temperature Pulse Rate [Left P ulse Oximeter] 62 Respiratory Rate 16 Blood Pressure [Ri ght Arm] 139/75 Pulse Oximetry 90 Oxygen Delivery Me thod High Flow Nasal Ca nnula Oxygen Flow Rate 15 Fraction of Inspir ed Oxygen 25 25 25 07/06/23 04:50 07/06/23 07:00 07/06/23 07:00 Temperature Pulse Rate [Left P ulse Oximeter] 64 Respiratory Rate 16 Blood Pressure [Ri ght Arm] Pulse Oximetry Oxygen Delivery Me thod Oxygen Flow Rate Fraction of Inspir ed Oxygen 25 25 07/06/23 07:00 07/06/23 07:00 07/06/23 08:33 Temperature 98.2 F Pulse Rate [Left P ulse Oximeter] 64 Respiratory Rate 16 16 Blood Pressure [Ri ght Arm] 110/56 L Pulse Oximetry 88 88 Oxygen Delivery Me thod High Flow Nasal Ca nnula High Flow Nasal Ca nnula Oxygen Flow Rate 15 15 15 Fraction of Inspir ed Oxygen 25 25 0.21 07/06/23 10:00 Temperature Pulse Rate [Left P ulse Oximeter] Respiratory Rate Blood Pressure [Ri ght Arm] Pulse Oximetry Oxygen Delivery Me thod Oxygen Flow Rate Fraction of Inspir ed Oxygen 21 DS: Data Data Completed and Pending Labs on day of discharge: Labs from last 24 hours 07/06/23 07/05/23 06:30 10:42 Potassium 4.0 Procalcitonin 0.09 Discharge Plan Discharge Disposition: Home, Self-Care Date of Admission: 06/28/23 00:49 Attending Provider on Discharge: Boy Aleman Primary Care Provider: Marycruz Mills Condition: Unchanged Anticipated Discharge Date/Time: 07/06/23 10:19 Discharge Medications: New levofloxacin 500 mg tablet 500 mg PO DAILY Qty: 5 0RF prednisone 20 mg tablet 20 mg PO DAILY Qty: 17 0RF Rx Instructions: Take two tabs (40mg) for 5 days, then take one tab (20mg) for five days, then take one-half tab for 4 days (10mg). Then start the 5 mg from the other bottle. prednisone 5 mg tablet 5 mg PO DAILY Qty: 5 0RF Lactobacillus acidophilus 100 mg (1 billion cell) capsule 100 mmu cells PO DAILY Qty: 30 0RF albuterol sulfate 90 mcg/actuation HFA aerosol inhaler 1 inh inhalation QID PRN (Reason: shortness of breath or wheezing) Qty: 8.5 0RF Continued hydrocodone-acetaminophen 5-325 mg tablet 1 tab PO Q4-6H PRN (Reason: pain) Qty: 15 0RF Discontinued doxycycline hyclate 100 mg capsule 100 mg PO BID 10 Days Qty: 20 0RF Discharge Orders: Discharge Order (Routine); Ordered 07/06/23 Ordered By: Verona Gamino Patient Education: Albuterol (By breathing), Prednisone (By mouth), Levofloxacin (By mouth), Probiotic (By mouth), RSV (Respiratory Syncytial Virus) (DC) Additional Instructions: 1. No work until Sunday07/16/23. 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 Once you feel 100% your work can return to 100%. 2. Finish 5 more days of antibiotic 3. Finish the prednisone taper (two different bottles) 4. Use the lactobacillus probiotic for the next couple of weeks 5. Albuterol inhaler as needed Activity Level: Activity as Tolerated Discharge Diet: Regular Follow Up Appointments: Marycruz Mills MD [Primary Care Provider] - 07/11/23 11:30 am ([facility] for follow-up) Forms: [employer] Info Instructions
--- NOTE | 2023-07-06 16:44 | PC.NURSE ---
discharge: patient alert and oriented, independent in room. patient discharged to home accompanied by dtr. IV removed intact. VSS. on RA. discharge instructions given and signed. belongings sheet signed. patient verbalized understanding of instructions.
== END 2023-07-06 14:20 | disposition home or self-care (01) | DRG 193 ==
LOC: ED 06-28 00:21 → MEDSURG 06-28 01:53
PROVIDERS: Family Medicine; Internal Medicine; Admitting Provider Emergency Medicine Emergency Medical Services; Emergency Provider Emergency Medicine Emergency Medical Services; PCP Family Medicine; Visit Provider Emergency Medicine Emergency Medical Services
DX: J12.1 Respiratory syncytial virus pneumonia (principal); J96.01 Acute respiratory failure with hypoxia; A41.9 Sepsis, unspecified organism; E87.1 Hypo-osmolality and hyponatremia; N17.9 Acute kidney failure, unspecified; J91.8 Pleural effusion in other conditions classified elsewhere; R91.8 Other nonspecific abnormal finding of lung field
CPT/HCPCS: 36415; 70450; 71045; 71046; 71250; 80048; 80053; 80069; 80076; 82803; 82977; 83605; 83735; 83880; 84132; 84145; 84439; 84443; 84480; 84484; 85025; 85027; 86140; 87040; 87070; 87081; 87449; 87493; 87631; 87899; 93005; 94640; 94664; 94761; 96374; 96375; 99284; 99285; A9270; J0456; J1170; J1650; J2405; J2543; J2930; J3370; J7030; J7050; J7512; J7626

== ENCOUNTER 2023-08-06 14:54 | Outpatient (CLI) | payer MEDICARE, OTHER, SELFPAY ==
--- NOTE | 2023-08-06 15:00 | MM_ITS ---
Final Report Patient: MIKE DA SILVA Facility:?[facility] Patient ID:?[id number] :?[id number] Study:?XRay Breast Bilateral 3D W/CAD-08/06/2023 3:52:26 PM Ordering Physician:Marycruz Rios Final Report: BILATERAL SCREENING MAMMOGRAM WITH COMPUTER-AIDED DETECTION AND TOMOSYNTHESIS TECHNIQUE: CC and MLO views were obtained. These mammographic images have been obtained using full-field digital technique. These mammographic images were interpreted with the benefit of computer-aided detection. Breast Tomosynthesis was used in this interpretation. COMPARISON FILM: 05/24/22, 05/19/21, 05/04/20. FINDINGS: There are scattered areas of fibroglandular density. IMPRESSION: There is no radiographic evidence for malignancy. ASSESSMENT: BI-RADS Category 1: Negative RECOMMENDATION: Routine screening mammogram in 1 year. A lay language report of this examination will be provided to the patient. Chas Reilly M.D. Diagnostic Radiologist [email or web address] DSM/sp R& Transcribed: 3:52 p.m. SP/Dictated by: Chas Reilly MD @ 08/08/2023 12:57:00 PM (Electronic Signature)
== END 2023-08-06 14:55 | disposition home or self-care (01) ==
LOC: MAMMO 14:55
PROVIDERS: PCP Family Medicine; Visit Provider Family Medicine
DX: Z12.31 Encounter for screening mammogram for malignant neoplasm of breast (principal)
CPT/HCPCS: 77063; 77067

== ENCOUNTER 2023-08-10 15:50 | Outpatient (CLI) | payer MEDICARE, OTHER, SELFPAY ==
--- NOTE | 2023-08-10 16:00 | CT_ITS ---
Patient: MIKE DA SILVA Facility:?[facility] Patient ID:?[id number] Site Patient ID:?[id number]. Site :?[id number] Study:?CT-Chest WO-08/10/2023 4:34:21 PM Ordering Physician:LJ Final Report: INDICATION: Follow up pulmonary consolidation TECHNIQUE: Volumetric helical scanning of the thorax was performed without IV contrast material. Coronal and sagittal reconstructions were obtained. COMPARISON: Chest CT of 07/03/2023 FINDINGS: Since the previous examination, the bilateral infiltrates and pleural effusions have resolved. Scarring in the anteromedial left upper lobe is noted along with minor subsegmental atelectasis or scarring in the bases. There is no significant airway abnormality. The heart size is normal. Images of the upper abdomen are unremarkable. IMPRESSION: Resolution of previously demonstrated bilateral infiltrates and pleural effusions. Residual scarring noted in the anteromedial left upper lobe as well as subsegmental atelectasis or fibrosis in the lung bases. Please note that all CT scans at this facility use dose modulation, iterative reconstruction, and/or weight-based dosing when appropriate to reduce radiation dose to as low as reasonably achievable. Dictated by Boy Marley MD @ 08/11/2023 6:42:54 AM Signed by:?Boy Marley MD @08/11/2023 6:42:54 AM (Electronic Signature)
== END 2023-08-10 15:51 | disposition home or self-care (01) ==
LOC: CT 15:51
PROVIDERS: PCP Family Medicine; Visit Provider Family Medicine
DX: J18.9 Pneumonia, unspecified organism (principal)
CPT/HCPCS: 71250

== ENCOUNTER 2024-08-07 15:25 | Outpatient (CLI) | payer MEDICARE, OTHER, SELFPAY ==
--- NOTE | 2024-08-07 15:40 | CRLHL7_ITS ---
For Patients: As a result of the Cures Act, medical imaging exams and procedure reports are released immediately into your electronic medical record. You may view this report before your referring provider. If you have questions, please contact your health care provider. BILATERAL SCREENING MAMMOGRAM WITH COMPUTER-AIDED DETECTION AND TOMOSYNTHESIS TECHNIQUE: CC and MLO views were obtained. These mammographic images have been obtained using full-field digital technique. These mammographic images were interpreted with the benefit of computer-aided detection. Breast Tomosynthesis was used in this interpretation. COMPARISON FILM: 08/06/23, 05/24/22, 05/19/21. FINDINGS: There are scattered areas of fibroglandular density IMPRESSION: There is no radiographic evidence for malignancy. ASSESSMENT: BI-RADS Category 1: Negative RECOMMENDATION: Routine screening mammogram in 1 year. A lay language report of this examination will be provided to the patient. Chas Reilly M.D. Diagnostic Radiologist [email or web address] NICOLÁS/shilpi Transcribed: 2:31 p.mYanick dobbins/Dictated by: Chas Reilly MD @ 08/12/2024 12:52:00 PM (Electronically Signed)
== END 2024-08-07 15:26 | disposition home or self-care (01) ==
LOC: MAMMO 15:25
PROVIDERS: PCP Family Medicine; Visit Provider Family Medicine
DX: Z12.31 Encounter for screening mammogram for malignant neoplasm of breast (principal)
CPT/HCPCS: 77063; 77067

== ENCOUNTER 2025-02-12 22:24 | Emergency (ER) | payer MEDICARE, OTHER, SELFPAY ==
--- OUTSIDE RECORDS SUMMARY | 2025-02-12 22:26 | XMS_ITS | Clinical Summary ---
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3mL) PF MDV 07/06/2020,06/15/2020 Influenza A (H1N1), Inactiva johnathon (Age >=3 Years) 04/19/2009 Influenza, High-dose Inactivated 03/20/2018,12/2014 Influenza, IIV3 (Age 6-35 mos) 03/24/2020,2012,03/22/2011 Influenza, IIV3 (Age >=3 years) 04/15/2014,03/31,03/06/2012 Influenza, IIV4 03/20/2019,04/04/2017,03/20/2016 Pneumococcal conj 13-Valent (Prevnar 13) 014 Tdap 05/12/2014 Zoster (Zostavax-ZVL, live) 05/18/2012 Family History Medical History Relation Name Comments Parkinsonism Brother Relation Name Status Comments Brother Alive Social History Tobacco Use Types Packs/Day Years Used Date Smoking Tobacco: Never Smokeless Tobacco: Never Alcohol Use Standard Drinks/Week Comments Yes 0 (1 standard drink = 0.6 oz pur e alcohol) Rare Comments Unknown Sex and Gender Information Value Date Recorded Sex Assigned at Not on file Legal Sex Female 6:16 AM [employer] Gender Identity Not on file Sexual Orientation Not on file Obstetrics History Last Filed Vital Signs Vital Sign Reading Time Taken Comments Blood Pressure 131/72 01/25/2021 10:56 AM CDT Pulse 68 01/25/2021 10:56 AM CDT Temperature 36.7 C (98.1 F) 01/25/2021 10:56 AM CDT Respiratory Rate - - Oxygen Saturation - - Inhaled Oxygen Concentration - - Weight 61.2 kg (135 lb) 01/25/2021 10:56 AM CDT Height 162.6 cm (5' 4) 01/25/2021 10:56 AM CDT Body Mass Index 23.17 01/25/2021 10:56 AM CDT Plan of Treatment Health Maintenance Due Date Last Done Comments Depression screening for age 12+ 1952 DEXA/DXA scan for age 65+ 2006 Medicare Wellness for age 65+ 2006 Zoster (shingles) series for age 50+ (2 of 3) 07/13/2012 05/18/2012 Pneumococcal series for age 50+ (2 of 2 - PPSV23) 05/12/2015 05/12/2014 RSV vaccine for adults or (1 - 1-dose 75+ series) 2016 BMI (ht and wt on same day) for age 18+ 01/25/2022 01/25/2021 COVID-19 vaccine series (3 - 2023- season) 2024 07/06/2020, 06/15/2020 Tetanus booster 05/12/2024 05/12/2014 Influenza Vaccine (#1) 2025 , 03/20/2019, 03/20/2018, Additional history exists Hepatitis B series for 19+ Aged Out N o longer eligible based on patient's age to complete this topic Insurance MEDICARE PB ONLY [facility] Care Teams Electric 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
[2025-02-12 22:28] VITALS: BP 156/77; PULSE 95; RESP 18; TEMP 36.7; O2SAT 96; BMI 21.6
--- NOTE | 2025-02-12 22:54 | ED.FEMALEGU ---
HPI - Female Genitourinary General Date Seen: 02/12/25 Chief complaint: Urogenital Problems, Female Stated complaint: urogenic problems Time Seen by Provider: 02/12/25 22:30 Source: patient Mode of arrival: ambulatory Limitations: no limitations History of Present Illness HPI Narrative: Patient is a 31-year-old female presenting to the emergency department for concern of a prolapse. 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 She describes it as weird, almost orgasmic. Denies ever having symptoms like this before. 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 Denies any pain associated with it. Denies any dysuria. Has not noticed any vaginal bleeding or discharge. No other concerns noted at this time. Related Data Home Medications ?Medication ?Instructions ?Recorded ?Confirmed No Known Home Medications 02/12/25 02/12/25 Allergies Allergy/AdvReac Type Severity Reaction Status Date / Time No Known Drug Allergies Allergy Verified 02/12/25 22:31 Review of Systems Narrative: Pertinent systems reviewed and were negative unless stated in HPI PFSH PFS Social History What is your current living situation?: I presently have a place to live Problems where you live: no known problems Problems where you live details: n/a In the past 12 months, utilities in danger of being shut off: no In past 12 months, lack of transportation kept you from medical appts, meetings, work, or getting things needed for daily living: no In the past 12 mos, have been you worried that your food would run out before you had money to buy more?: never true In the past 12 mos, the food you bought just didn't last and you didn't have money to buy more?: never true Smoking Status: Never smoker Do you use any of these nicotine containing products: None Second hand tobacco smoke exposure: No How often do you have a drink containing alcohol: never AUDIT-C Alcohol total score: 0 Non-prescribed substance use: denies use Caffeine: Yes (Coffee) How often does anyone, including family, friends and others, physically hurt you: never How often does anyone, including family, friends and others, insult or talk down to you: never How often does anyone, including family, friends and others, threaten you with harm: never How often does anyone, including family, friends and others, scream or curse at you: never service: No Exam Narrative: Exam Narrative: Const: Well-nourished, Well-developed, in no distress Eyes: PERRL, no conjunctival injection, and symmetrical lids HENT: Atraumatic external nose and ears. Moist mucous membranes. : Normal. External genitalia. No obvious signs of bladder prolapse on speculum exam MSK:Extremities w/o deformity, Normal Active ROM Skin: Warm, Dry. No rashes or lesions. Neuro: Normal Muscle tone, No focal neurological deficits. Psych: Awake, Alert, & Oriented x3. Appropriate mood and affect. Const: Vital Signs, click to edit/add: Vital Signs - 24 hr 02/12/25 22:28 Temperature 98.1 F Pulse Rate [Pulse Oximeter] 95 Respiratory Rate 18 Blood Pressure [Le ft Upper Arm] 156/77 H Pulse Oximetry 96 Oxygen Delivery Me thod Room Air Course Vital Signs Vital signs: Initial Vital Signs Temperature 98.1 F 02/12/25 22:28 Temperature Source Temporal Artery Scan 02/12/25 22:28 Pulse Rate 95 02/12/25 22:28 Respiratory Rate 18 02/12/25 22:28 Blood Pressure 156/77 H 02/12/25 22:28 Blood Pressure Mean 103 02/12/25 22:28 Blood Pressure Position Sitting 02/12/25 22:28 Pulse Oximetry 96 02/12/25 22:28 Oxygen Delivery Method Room Air 02/12/25 22:28 Vital Signs Temperature 98.1 F 02/12/25 22:28 Pulse Rate 95 02/12/25 22:28 Respiratory Rate 18 02/12/25 22:28 Blood Pressure 156/77 H 02/12/25 22:28 Pulse Oximetry 96 02/12/25 22:28 Oxygen Delivery Method Room Air 02/12/25 22:28 Temperature 98.1 F 02/12/25 22:28 Pulse Rate 95 02/12/25 22:28 Respiratory Rate 18 02/12/25 22:28 Blood Pressure 156/77 H 02/12/25 22:28 Pulse Oximetry 96 02/12/25 22:28 Oxygen Delivery Method Room Air 02/12/25 22:28 MDM - Female Genitourinary MDM Narrative Medical decision making narrative: Patient is an 84-year-old female presenting for the emergency department for concern of a prolapse. On My pelvic exam I do not see any signs of prolapse. She is otherwise doing well at this time. I do believe she is safe for discharge. I informed her to follow up with Gynecology. Not sure what is causing the symptoms but workup in the emergency department does not seem necessary Discharge Plan Discharge Clinical Impression: Vaginal discomfort Patient Disposition: Home, Self-Care Condition: Stable Additional Instructions: I am not sure what is causing your symptoms but I do not see any signs of prolapse. I recommend close follow-up with Gynecology. If you continued to have the symptoms call them in the morning. Prescriptions: No Action No Known Home Medications Follow Up/Referrals: Alejo Hansen MD [Primary Care Provider, Family Practice] Stand Alone Forms: [employer] Info Instructions
== END 2025-02-12 23:19 | disposition home or self-care (01) ==
PROVIDERS: Emergency Provider Student in an Organized Health Care Education/Training Program; PCP Family Medicine
DX: N89.8 Other specified noninflammatory disorders of vagina (principal)
CPT/HCPCS: 99283